=== PATIENT | male | born 1940 | race Caucasian/White ===

== ENCOUNTER 2018-10-26 11:38 | Observation (INO) | payer MEDICARE, OTHER ==
[2018-10-26] MEDS ORDERED: DIPRIVAN 200 MG/20 ML IV ONE (12:01)
[2018-10-26] MEDS ORDERED: Ketamine HCl 50 MG/ML IV ONE (12:01)
[2018-10-26 12:55] LABS: Hematocrit 38.1 % (42-50); Hemoglobin 13.6 gm/dl (12.5-18.0); Mean Cell Volume 103.3 fl (78-100); Mean Corpuscular Hgb Concent. 35.7 g/dl (32-36); Mean Platelet Volume 10.5 fl (6-9.5); Platelet Count 388 K/mm3 (150-450); Red Blood Count 3.69 M/mm3 (4.1-5.6); Red Cell Distribution Width 14.9 % (11.5-14.0); White Blood Count 4.4 K/mm3 (4.0-10.5)
[2018-10-26] MEDS ORDERED: SODIUM CHLORIDE 0.9% IV SCH (13:00)
[2018-10-26] MEDS ORDERED: [UNRECOGNIZED DRUG - OTHER] IV SCH (13:00)
[2018-10-26 13:03] LABS: Mean Corpuscular Hemoglobin 36.8 pg (26-32)
[2018-10-26 13:06] LABS: ALBUMIN 4.2 g/dL (3.5-5.0); ALKALINE PHOSPHATASE 50 U/L (38-126); AMYLASE 88 U/L (30-110); ANION GAP 13.4 MEQ/L (5-15); BLOOD UREA NITROGEN 25 mg/dL (9-20); CHLORIDE 105 mmol/L (98-107); Calcium 9.5 mg/dL (8.4-10.2); Carbon Dioxide 28 mmol/L (22-30); Creatinine 1 0.89 mg/dL (0.66-1.25); Glucose 94 mg/dL (74-106); LIPASE 107 U/L (23-300); Potassium 3.2 mmol/L (3.5-5.1); SGOT/AST 25 U/L (17-59); SGPT/ALT 22 U/L (0-50); SODIUM 143 mmol/L (137-145); Total Protein 7.2 g/dL (6.3-8.2)
[2018-10-26 13:51] LABS: Slide Review YES
[2018-10-26] MEDS: PROTONIX 40 MG IV IV SCH (14:28)
[2018-10-26] MEDS ORDERED: NORCO 5/325 MG PO PRN (14:32)
[2018-10-26] MEDS ORDERED: MEDICATION INTERVENTION MC SCH ×2 (15:15)
[2018-10-26] MEDS: NORVASC 5 MG PO SCH (15:38)
[2018-10-26] MEDS: Pepcid 20 MG PO SCH ×2 (15:38→21:24)
[2018-10-26] MEDS: ANTIVERT 25 MG PO SCH ×2 (15:38→21:25)
[2018-10-26] MEDS: DELTASONE 5 MG PO SCH (15:39)
[2018-10-26] MEDS: FOLTX (FOLBIC) PO SCH (15:40)
--- NOTE | 2018-10-26 16:24 | XRAY ---
Indication: Unexplained 35 pound weight loss 6 months. Conventional MRCP was performed. Comparison: None Gallbladder moderately distended without gallstones, wall thickening, or pericholecystic fluid. Intrahepatic and extrahepatic biliary tree normal in course and caliber. No stricture, obstruction, or filling defect. Pancreatic duct unremarkable. Bilateral renal cysts, largest left mid kidney measuring 8.5 cm. Largest right renal cyst is 3.8 cm midpole. Remaining visualized liver, pancreas, stomach, and bowel loops appear unremarkable. Impression: 1. Distended gallbladder. Remaining MRCP is negative. 2. Incidental bilateral renal cysts.
[2018-10-26] MEDS ORDERED: Golytely Solution 4000 ML PO ONE (20:00)
[2018-10-26] MEDS: Sodium Chloride 0.9% 1000 ML 1,000 ML IV SCH (21:03)
[2018-10-26] MEDS: Aricept 10 MG PO SCH (21:25)
[2018-10-26] MEDS ORDERED: FAMOTIDINE 10 MG PO SCH (22:00)
[2018-10-26] MEDS ORDERED: NON-FORMULARY ITEM (Melatonin [Melatonin] 10 MG) PO SCH (22:00)
[2018-10-26] MEDS ORDERED: NON-FORMULARY ITEM (Duloxetine Hcl [Cymbalta] 20 MG) PO SCH (22:00)
[2018-10-26] MEDS ORDERED: Protonix 40MG Tablet PO SCH (22:00)
[2018-10-26] MEDS ORDERED: Zofran 4 MG/2 ML VIAL IV PRN (23:33)
[2018-10-27] MEDS: TYLENOL 325 MG PO PRN ×2 (02:42→14:25)
[2018-10-27] MEDS: Sodium Chloride 0.9% 1000 ML 1,000 ML IV SCH ×2 (06:38→16:53)
[2018-10-27] MEDS ORDERED: CYANOCOBALAMIN PO SCH (10:00)
[2018-10-27] MEDS ORDERED: CALCIUM CARB CITRATE PO SCH (10:00)
[2018-10-27] MEDS ORDERED: FOLIC AC PO SCH (10:00)
[2018-10-27] MEDS ORDERED: [UNRECOGNIZED DRUG - OTHER] PO SCH (10:00)
[2018-10-27] MEDS ORDERED: Calcium 500MG W/Vit D Tablet PO SCH (10:00)
[2018-10-27] MEDS ORDERED: NON-FORMULARY ITEM (Amlodipine Besylate [Norvasc] 10 MG) PO SCH (10:00)
[2018-10-27] MEDS ORDERED: VIT B6 PO SCH (10:00)
[2018-10-27] MEDS ORDERED: PREDNISOLONE 5 MG PO SCH (10:00)
[2018-10-27] MEDS ORDERED: VIT D3 PO SCH (10:00)
[2018-10-27] MEDS: Pepcid 20 MG PO SCH ×2 (10:12→21:26)
[2018-10-27] MEDS: FOLTX (FOLBIC) PO SCH (10:12)
[2018-10-27] MEDS: DELTASONE 5 MG PO SCH (10:13)
[2018-10-27] MEDS: NORVASC 5 MG PO SCH (10:14)
[2018-10-27] MEDS: ANTIVERT 25 MG PO SCH ×2 (10:14→21:25)
[2018-10-27] MEDS: PROTONIX 40 MG IV IV SCH (12:25)
[2018-10-27 12:57] LABS: CA 125 30.4 U/mL (0.0-35.0)
--- NOTE | 2018-10-27 12:58 | CONS ---
CONSULT DATE: 10/26/2018 REASON FOR THE CONSULT: Abdominal pain and weight loss. HISTORY: The patient is 77 years old. He does have some dementia going. He saw Dr. Nguyen this past . He had an EGD and the EGD showed erosive esophagitis with ulcers, small hiatal hernia. He was placed on medication. A lower colonoscopic examination was discussed. His last colonoscopic examination was 1997. Somehow they decided not to do a lower colonoscopy at that time. He had about 40 pound weight loss. He had MRCP here at [facility] showing distended gallbladder but nothing else. He is alert. His dementia from my view point on just popping into the room is a little hard to access. We will leave that to medical. He shows obvious weight loss of at least 40 pounds. His abdomen is fully scaphoid. There was just a wisp of fullness in his pancreatic head on physical examination. He is nontender. He has no recent incisions. His chart is reviewed. His EGD from [facility] reviewed. His MRCP report reviewed, IMPRESSION: The patient has had a change in bowel habits, has had diarrhea and has had a 40 pound weight loss. He clearly needs a colonoscopy. He also needs a HIDA scan. I am not convinced that he has dyskinesia. I certainly am concerned that the gallbladder dilatation could be one of soft early findings of a pancreatic malignancy that is yet to be diagnosed. PLAN: We will proceed with colonoscopy and HIDA scan.
[2018-10-27 13:32] LABS: 027 TOX PROD PRESUMPTIVE NEGATIVE (NEGATIVE); TOXIGENIC C. DIFF ORG NEGATIVE (NEGATIVE)
--- NOTE | 2018-10-27 13:53 | OP ---
SURGERY DATE/TIME: 10/27/2018 1110 PREOPERATIVE DIAGNOSIS: Diarrhea, change in bowel habits, previous colon resection and no colonoscopy since 1997 and a 40 pound weight loss. POSTOPERATIVE DIAGNOSIS: Diarrhea, change in bowel habits, previous colon resection and no colonoscopy since 1997 and a 40 pound weight loss. PROCEDURE: Colonoscopy complete to cecum. SURGEON: Maximiliano Zuluaga M.D. ANESTHESIA: MAC. COMPLICATIONS: None. CONDITION: Stable. FINDING: Severe diverticulosis of sigmoid otherwise normal. Stool for Clostridium difficile, ova and parasite, stool pathogens. INDICATION: The patient presents with diarrhea, change in bowel habits, had a resection some time ago. He has not had a colonoscopy since 1997. DESCRIPTION OF PROCEDURE: He is taken to endoscopy. Left lateral decubitus position. Anal digital examination satisfactory. Prostate satisfactory. Scope advanced to the cecum. Cecum satisfactory. Base of the cecum satisfactory. Appendiceal orifice, ileocecal valve, ascending, hepatic, transverse, splenic, descending, sigmoid severe diverticulosis but no mucosal lesions. Rectum normal. Anus normal. IMPRESSION: Severe diverticulosis otherwise satisfactory. Stool was sent for Clostridium difficile, ova and parasite, stool pathogen. Additionally, the patient's x-ray jacket was reviewed with the radiologist in the radiology department. MRCP only showed a very slightly dilated gallbladder but there was no suggestion of any pancreatic mass on the MRCP. This was on review with the concern that a dilated gallbladder can be one of the earlier signs of this and the patient has lost 40 pounds but there was absolutely no radiological suggestion at this time. HIDA scan has been ordered. If the HIDA scan is severely abnormal, I would consider possibly removing the gallbladder. If the HIDA scan is 20% or greater, I do not think I would probably remove the gallbladder on this individual at this time. This was all discussed with the family. I think the patient is real close to having had a complete work up. [place] He had colonoscopy today. He had MRCP here. He had the MRCP reviewed with radiologist. He is lacking a HIDA scan. If this all returns negative then it's predominantly his dementia although treating his erosive esophagitis is certainly still in order.
[2018-10-27] MEDS ORDERED: TORAdol 30 mg Injection IV PRN (16:46)
--- NOTE | 2018-10-27 17:03 | PCM.NOTE ---
Date and Time: 10/27/181655 Subjective Assessment: doing better, colonoscopy unremarkable - Review of Systems Constitutional: No Fever, No Chills Eyes: No Symptoms Ears, Nose, & Throat: No Symptoms Respiratory: No Cough, No Short Of Breath Cardiac: No Chest Pain, No Edema, No Syncope Abdominal/Gastrointestinal: No Abdominal Pain, No Nausea, No Vomiting, No Diarrhea Genitourinary Symptoms: No Dysuria Musculoskeletal: No Back Pain, No Neck Pain Skin: No Rash Neurological: No Dizziness, No Focal Weakness, No Sensory Changes Psychological: No Symptoms Endocrine: No Symptoms Hematologic/Lymphatic: No Symptoms Immunological/Allergic: No Symptoms Objective Exam General Appearance: no apparent distress, alert Neurologic Exam: alert, oriented x 3, cooperative, normal mood/affect, nml cerebellar function, sensation nml, No motor deficits Skin Exam: normal color, warm, dry Eye Exam: PERRL, EOMI, eyes nml inspection Ears, Nose, Throat Exam: normal ENT inspection, pharynx normal, moist mucous membranes Neck Exam: normal inspection, non-tender, supple, full range of motion Respiratory Exam: normal breath sounds, lungs clear, No respiratory distress Cardiovascular Exam: regular rate/rhythm, normal heart sounds Gastrointestinal/Abdomen Exam: soft, No tenderness, No mass Extremity Exam: normal inspection, normal range of motion Back Exam: normal inspection, normal range of motion, No CVA tenderness, No vertebral tenderness Male Genitalia Exam: deferred Rectal Exam: deferred OBJECTIVE DATA Vital Signs: Vital Signs - 24 hr Temp Pulse Resp BP Pulse Ox 10/27/18 15:30 98.5 F 82 20 110/57 94 L 10/27/18 14:30 98.6 F 88 20 114/60 97 10/27/18 13:30 98.3 F 81 20 124/63 98 10/27/18 13:00 98.2 F 82 18 125/68 97 10/27/18 12:30 97.4 F 82 20 132/74 97 10/27/18 12:15 99.5 F 75 18 129/74 98 10/27/18 11:58 98.2 F 75 16 125/71 96 10/27/18 07:23 98.5 F 76 18 110/59 96 10/27/18 07:11 98.5 F 76 18 110/59 96 10/27/18 04:00 98.4 F 74 18 113/59 93 L 10/27/18 00:00 98.0 F 65 17 124/66 95 10/26/18 20:00 98.5 F 94 H 18 124/63 94 L Pain Assessment - Last Documented Pain Intensity 0 Pain Scale Used 0-10 Pain Scale Intake and Output: Intake & Output 10/25/18 10/26/18 10/27/18 10/28/18 11:59 11:59 11:59 11:59 Intake Total 5292 960 Output Total 300 Balance 5292 660 Weight 50.2 kg Lab Results: Lab Results-Last 24 Hours 10/26/18 10/27/18 Range/Units 12:50 11:27 CA 19-9 Antigen Pending CA 125 Antigen 30.4 (0.0-35.0) U/mL Stl C. diff Tox B Gene NEGATIVE (NEGATIVE) C.difficile 027-NAP1-B1 PRESUMPTIVE NEGATIVE (NEGATIVE) Radiology Exams: Radiology Procedures Category Date Time Status HIDA-GALL BLADDER [NUCMED] Routine Exams 10/28/18 08:00 Ordered MRI ABD W/O CONTRAST [MRI] Routine Exams 10/26/18 13:00 Completed Assessment/Plan (1) HTN (hypertension) Current Visit: Yes Status: Acute Qualifiers: Hypertension type: essential hypertension Qualified Code(s): I10 - Essential (primary) hypertension Code(s): I10 - ESSENTIAL (PRIMARY) HYPERTENSION (2) Esophagitis Current Visit: Yes Status: Acute Code(s): K20.9 - ESOPHAGITIS, UNSPECIFIED (3) Gastric ulcer Current Visit: Yes Status: Acute Qualifiers: Gastric ulcer chronicity: acute Gastric ulcer complication status: without hemorrhage or perforation Qualified Code(s): K25.3 - Acute gastric ulcer without hemorrhage or perforation Code(s): K25.9 - GASTRIC ULCER, UNSP ACUTE OR CHRONIC, W/O HEMOR OR PERF (4) Chronic pain Current Visit: Yes Status: Chronic Qualifiers: Chronic pain type: chronic pain syndrome Qualified Code(s): G89.4 - Chronic pain syndrome Code(s): G89.29 - OTHER CHRONIC PAIN
[2018-10-27] MEDS: Aricept 10 MG PO SCH (21:27)
[2018-10-28] MEDS: Sodium Chloride 0.9% 1000 ML 1,000 ML IV SCH (02:11)
[2018-10-28] MEDS ORDERED: METHOTREXATE SODIUM 15 MG PO SCH (10:00)
[2018-10-28 11:33] VITALS: BP 128/72; PULSE 85; O2SAT 96
[2018-10-28 12:17] LABS: Source: Feces
--- NOTE | 2018-10-28 13:08 | PCM.DS ---
Discharge Summary Date of Admission: 10/26/18 12:00 Admitting Physician: KIRSTIE MONTIEL Consults: Consults on Case 10/26/18 18:37 Consult Surgery ROUTINE Primary Care Provider: KIRSTIE MONTIEL Allergies Allergies No Known Drug Allergies Allergy (Unverified 10/26/18 12:22) Hospital Summary - Hospital Course Hospital Course: Chief Complaint Diagnosis Abnormal wt loss, Dehydration,Duodenal ulcer Allergies Allergy/AdvReac Type Severity Reaction Status Date / Time No Known Drug Allergies Allergy Unverified 10/26/18 12:22 Vital Signs (Last 24 hours) Temp Pulse Resp BP Pulse Ox 10/28/18 11:31 99.4 F 85 18 128/72 96 10/28/18 06:57 99 F 77 17 118/58 93 L 10/28/18 04:00 98.4 F 76 18 117/55 97 10/27/18 23:00 97.6 F 75 16 117/55 97 10/27/18 19:00 98.6 F 90 16 120/62 96 10/27/18 15:30 98.5 F 82 20 110/57 94 L 10/27/18 14:30 98.6 F 88 20 114/60 97 10/27/18 13:30 98.3 F 81 20 124/63 98 Home Medications Medication Instructions Recorded Confirmed Last Taken Type Amlodipine Besylate [Norvasc] 10 mg PO DAILY 10/26/18 10/26/18 10/25/18 History Calcium Carb, Citrate/Vit D3 1 each PO DAILY 10/26/18 10/26/18 10/25/18 History [Calcium + D3 ER Tablet] Cyanocobalamin/Folic AC/Vit B6 [B 1 each PO DAILY 10/26/18 10/26/18 10/25/18 History Complex-Folic Acid Tablet] Denosumab 60 mg [Prolia 60 mg 60 mg SQ UD 10/26/18 10/26/18 09/07/18 History Injection] Donepezil HCl 10 mg PO HS 10/26/18 10/26/18 10/25/18 History Duloxetine HCl [Cymbalta] 20 mg PO BID 10/26/18 10/26/18 10/25/18 History Famotidine 10 mg PO BID 10/26/18 10/26/18 10/25/18 History Hydrocodone/Acetaminophen [Lorcet 2 each PO Q4HPRN PRN 10/26/18 10/26/18 History 5-325 mg Tablet] Meclizine HCl 50 mg PO BID 10/26/18 10/26/18 10/25/18 History Melatonin 10 mg PO HS 10/26/18 10/26/18 10/25/18 History Methotrexate Sodium [Trexall] 15 mg PO UD 10/26/18 10/26/18 10/16/18 History PANTOPRAZOLE 40 mg Tablet 40 mg PO HS 10/26/18 10/26/18 10/25/18 History [Protonix 40MG Tablet] Prednisolone [Millipred] 5 mg PO DAILY 10/26/18 10/26/18 10/25/18 History Current Medications Generic Name Dose Route Start Last Admin Trade Name Freq PRN Reason Stop Dose Admin Acetaminophen 650 mg 10/27/18 02:40 10/27/18 14:25 Tylenol 325 Mg PO 11/26/18 02:39 650 mg Q4H PRN PRN Administration PAIN AND/OR FEVER Hydrocodone Bitart/Acetaminophen 2 tab 10/26/18 14:32 10/26/18 21:25 Agency 5/325 Mg PO 10/31/18 14:31 1 tab Q4HPRN PRN Administration pain Amlodipine Besylate 10 mg 10/26/18 15:00 10/27/18 10:14 Norvasc 5 Mg PO 11/25/18 14:59 10 mg DAILY POPPY Administration Calcium Carbonate 1 tab 10/27/18 10:00 10/27/18 10:12 Calcium 500mg W/Vit D Tablet PO 11/26/18 09:59 1 tab DAILY POPPY Administration Donepezil HCl 10 mg 10/26/18 22:00 10/27/18 21:27 Aricept 10 Mg PO 11/25/18 21:59 10 mg HS POPPY Administration Famotidine 10 mg 10/26/18 15:00 10/27/18 21:26 Pepcid 20 Mg PO 11/25/18 14:59 10 mg BID POPPY Administration Folic Acid 1 tab 10/26/18 15:00 10/27/18 10:12 Foltx (Folbic) PO 11/25/18 14:59 1 tab DAILY POPPY Administration Sodium Chloride 1,000 mls @ 100 mls/hr 10/26/18 18:45 10/28/18 02:11 Sodium Chloride 0.9% 1000 Ml IV 11/25/18 18:44 100 mls/hr .Q10H POPPY Administration Ketorolac Tromethamine 30 mg 10/27/18 16:46 10/27/18 17:05 Toradol 30 Mg Injection IV 11/01/18 16:45 30 mg Q6H PRN PRN Administration PAIN Meclizine HCl 50 mg 10/26/18 14:45 10/27/18 21:25 Antivert 25 Mg PO 11/25/18 14:44 50 mg BID POPPY Administration Methotrexate 15 mg 10/30/18 10:00 Trexall 2.5 Mg PO 11/29/18 09:59 Q7D POPPY Miscellaneous Information 0 each 10/26/18 15:15 Medication Intervention 11/25/18 15:14 .RN TO CHECK WITH PT POPPY Miscellaneous Information 0 each 10/26/18 15:15 10/27/18 21:25 Medication Intervention 11/25/18 15:14 10 each .RN TO CHECK WITH PT POPPY Administration Non-Formulary Medication 60 mg 03/10/19 14:45 Denosumab 60 Mg SQ 04/09/19 14:44 UD POPPY Ondansetron HCl 4 mg 10/26/18 23:33 10/26/18 23:39 Zofran 4 Mg/2 Ml Vial IV 11/25/18 23:32 4 mg Q4H PRN PRN Administration NAUSEA/VOMITING Pantoprazole Sodium 40 mg 10/26/18 13:00 10/27/18 12:25 Protonix 40 Mg Iv IV 11/25/18 12:59 40 mg Q24H POPPY Administration Prednisone 5 mg 10/26/18 15:00 10/27/18 10:13 Deltasone 5 Mg PO 11/25/18 14:59 5 mg DAILY POPPY Administration Discontinued Medications Generic Name Dose Route Start Last Admin Trade Name Freq PRN Reason Stop Dose Admin Cyanocobalamin 1,000 mcg/ 1,001 mls @ 150 mls/hr 10/26/18 13:00 04/24/19 14: 23 Sodium Chloride IV 10/26/18 19:40 150 mcg/hr .Q6H41M POPPY 150.15 mls/hr Administration Ketamine HCl 25 mg 10/26/18 12:01 Ketamine Hcl 50 Mg/Ml IV 10/26/18 12:02 .STK-MED ONE Pantoprazole Sodium 40 mg 10/26/18 22:00 Protonix 40mg Tablet PO 11/25/18 21:59 HS POPPY Polyethylene Glycol/Electrolytes 2,000 ml 10/26/18 20:00 10/26/18 19:46 Golytely Solution 4000 Ml PO 10/26/18 20:01 2,000 ml NOW ONE Administration Propofol 200 mg 10/26/18 12:01 Diprivan 200 Mg/20 Ml IV 10/26/18 12:02 .STK-MED ONE Intake & Output (Last 24 hours) 10/26/18 10/27/18 10/28/18 10/29/18 11:59 11:59 11:59 11:59 Intake Total 5292 2230 Output Total 300 Balance 5292 1930 Weight 50.2 kg Microbiology Results (Last 24 hours) 10/27/18 11:27 Stool Stool Culture - Pending Laboratory Results (Last 24 hours) 10/27/18 11:27 Stl C. diff Tox B Gene NEGATIVE C.difficile 027-NAP1-B1 PRESUMPTIVE NEGATIVE Orders (Last 24 hours) Category Date Time Status HIDA-GALL BLADDER [NUCMED] Routine Exams 10/28/18 08:00 Ordered Denosumab 60 mg Med 03/10/19 14:45 Active 60 mg SQ UD KETOROLAC trometh 30 mg Inj [TORAdol 30 mg Injection Med 10/27/18 16:46 Active ] 30 mg IV Q6H PRN PRN Methotrexate Sodium 2.5 mg [Trexall 2.5 mg] Med 10/30/18 10:00 Active 15 mg PO Q7D Patient Care Notes (Last 24 hours) 10/28/18 10:34 Nursing Note by Mila Amezcua holding morning medications until after HIDA scan Initialized on 10/28/18 10:34 - END OF NOTE - Vitals & Intake/Output Vital Signs: Vital Signs Temperature 99.4 F 04/26/19 11:31 Pulse Rate 85 10/28/18 11:31 Respiratory Rate 18 10/28/18 11:31 Blood Pressure 128/72 10/28/18 11:31 O2 Sat by Pulse Oximetry 96 10/28/18 11:31 Intake & Output: Intake & Output 10/26/18 10/27/18 10/28/18 10/29/18 11:59 11:59 11:59 11:59 Intake Total 5292 2230 Output Total 300 Balance 5292 1930 Weight 50.2 kg - Lab Result Diagrams: 10/26/18 12:50 10/26/18 12:50 Lab Results-Last 24 Hrs: Lab Results-Last 24 Hours 10/27/18 Range/Units 11:27 Stl C. diff Tox B Gene NEGATIVE (NEGATIVE) C.difficile 027-NAP1-B1 PRESUMPTIVE NEGATIVE (NEGATIVE) - Radiology Exams Ordered Rad Exams-Entire Visit: Radiology Procedures Category Date Time Status HIDA-GALL BLADDER [NUCMED] Routine Exams 10/28/18 08:00 Ordered MRI ABD W/O CONTRAST [MRI] Routine Exams 10/26/18 13:00 Completed Discharge Exam General Appearance: no apparent distress, alert Neurologic Exam: alert, oriented x 3, cooperative, normal mood/affect, nml cerebellar function, sensation nml, No motor deficits Skin Exam: normal color, warm, dry Eye Exam: PERRL, EOMI, eyes nml inspection Ears, Nose, Throat Exam: normal ENT inspection, pharynx normal, moist mucous membranes Neck Exam: normal inspection, non-tender, supple, full range of motion Respiratory Exam: normal breath sounds, lungs clear, No respiratory distress Cardiovascular Exam: regular rate/rhythm, normal heart sounds Gastrointestinal/Abdomen Exam: soft, No tenderness, No mass Extremity Exam: normal inspection, normal range of motion Back Exam: normal inspection, normal range of motion, No CVA tenderness, No vertebral tenderness Male Genitalia Exam: deferred Rectal Exam: deferred Final Diagnosis/Problem List - Final Discharge Diagnosis/Problem (1) Gastric ulcer Current Visit: Yes Status: Acute Assessment & Plan: improving Code(s): K25.9 - GASTRIC ULCER, UNSP ACUTE OR CHRONIC, W/O HEMOR OR PERF (2) HTN (hypertension) Current Visit: Yes Status: Acute Code(s): I10 - ESSENTIAL (PRIMARY) HYPERTENSION (3) Esophagitis Current Visit: Yes Status: Acute Code(s): K20.9 - ESOPHAGITIS, UNSPECIFIED (4) Chronic pain Current Visit: Yes Status: Chronic Code(s): G89.29 - OTHER CHRONIC PAIN - Discharge Discharge Date: 10/28/18 Disposition: Home, Self-Care Condition: Stable Prescriptions: New Sucralfate 1 gm [Carafate 1 GM] 1 g PO ACHS #120 tablet Continue Prednisolone [Millipred] 5 mg PO DAILY PANTOPRAZOLE 40 mg Tablet [Protonix 40MG Tablet] 40 mg PO HS Methotrexate Sodium [Trexall] 15 mg PO UD Melatonin 10 mg PO HS Amlodipine Besylate [Norvasc] 10 mg PO DAILY Donepezil HCl 10 mg PO HS Cyanocobalamin/Folic AC/Vit B6 [B Complex-Folic Acid Tablet] 1 each PO DAILY Famotidine 10 mg PO BID Duloxetine HCl [Cymbalta] 20 mg PO BID Hydrocodone/Acetaminophen [Lorcet 5-325 mg Tablet] 2 each PO Q4HPRN PRN PRN Reason: pain Meclizine HCl 50 mg PO BID Denosumab 60 mg [Prolia 60 mg Injection] 60 mg SQ UD Calcium Carb, Citrate/Vit D3 [Calcium + D3 ER Tablet] 1 each PO DAILY Follow up with: ARMANI VIRK [ACTIVE STAFF] - 1 Week KIRSTIE MONTIEL MD [Primary Care Provider] - 1 Week
[2018-10-28 14:15] LABS: Giardia Antigen EIA Negative (Negative)
[2018-10-28 14:15] LABS: CA 19-9 39.2 IU/mL (0.0-34.9)
--- NOTE | 2018-10-28 14:57 | XRAY ---
Indication: Right upper quadrant abdomen pain. Comparison: None Patient received 4.9 mCi of Tc 99 Choletec. Immediate anterior planar imaging was performed for 60 minutes. Normal hepatic activity on the first image. Normal liver and gallbladder activity within 10 minutes. Normal biliary to bowel activity within 40 minutes. Patient then received 1.0 g of IV CCK slowly. Ejection fraction calculated 89%, normal. Impression: Normal HIDA scan. Normal ejection fraction 89%.
[2018-10-30] MEDS ORDERED: TREXALL 2.5 MG PO SCH (10:00)
[2019-03-10] MEDS ORDERED: DENOSUMAB 60 MG SQ SCH (14:45)
== END 2018-10-28 15:45 | disposition home or self-care (01) ==
LOC: MED SURG 12:00
PROVIDERS: ADMIT General Practice; ATTEND General Practice
DX: K25.9 Gastric ulcer, unspecified as acute or chronic, without hemorrhage or perforation (principal); K20.9 Esophagitis, unspecified; I10 Essential (primary) hypertension; R63.4 Abnormal weight loss; E86.0 Dehydration; R19.4 Change in bowel habit; K44.9 Diaphragmatic hernia without obstruction or gangrene; R19.7 Diarrhea, unspecified; G89.29 Other chronic pain; Z79.899 Other long term (current) drug therapy
CPT/HCPCS: 36415; 45378; 74181; 78226; 80053; 82150; 83690; 85027; 86301; 86304; 87045; 87046; 87177; 87209; 87335; 87493; A9537; G0378; 99100; J1885; J2405; J2704; J2805; J3420; A9270-GY

== ENCOUNTER 2019-02-01 12:50 | Day surgery (SDC) | payer MEDICARE, OTHER ==
[2019-02-01] MEDS ORDERED: Depo-Medrol 40 MG/ML IM ONE (12:51)
[2019-02-01] MEDS ORDERED: Xylocaine-Mpf 2% 5 Ml Vial IJ ONE (12:51)
[2019-02-01] MEDS ORDERED: DIPRIVAN 200 MG/20 ML IV ONE (14:35)
--- NOTE | 2019-02-01 15:04 | XRAY ---
Indication: Bilateral L4-S1 MBB. Intraoperative fluoroscopy was provided for 18 seconds. Single digital spot image submitted for interpretation demonstrates posterior needle tips projecting over the expected course of the left and right L4-S1 nerve roots. Correlate with intraoperative findings/report.
[2019-02-01] MEDS ORDERED: Lactated Ringers 1,000 ML IV ONE (16:47)
--- NOTE | 2019-02-03 11:46 | XRAY ---
18 seconds of fluoroscopy was used in surgery for a bilateral L4-S1 MBB.
== END 2019-02-01 15:08 | disposition home or self-care (01) ==
LOC: SDC-PAIN 12:50
PROVIDERS: ATTEND Psychiatry & Neurology Pain Medicine
DX: M47.816 Spondylosis without myelopathy or radiculopathy, lumbar region (principal); I10 Essential (primary) hypertension; K21.9 Gastro-esophageal reflux disease without esophagitis; G47.30 Sleep apnea, unspecified; Z79.899 Other long term (current) drug therapy
CPT/HCPCS: 64493; 64494; 72020; 77002; J1030; J2704

== ENCOUNTER 2019-03-17 13:30 | Emergency (ER) | payer MEDICARE, OTHER ==
--- NOTE | 2019-03-17 13:56 | ERPHSYRPT ---
- History of Present Illness Time Seen by Provider: 03/17/19 13:40 Source: patient, family Exam Limitations: no limitations Patient Subjective Stated Complaint: Pt states "I have a bad back and since yesterday I have had this constant pain on my lower left back into my buttock." Triage Nursing Assessment: Pt presented alert and oriented X 3, skin pwd PT ambulates with a hunched over gait, able to speak in clear full sentences. Pt in no apparent respiratory distress. Physician History: 78 y/o white male with h/o chronic low back pain, presents with left lower back pain that is like a knife stabbing him and shoots into left buttock. pt is on perocet and took a pill at 0900. however, pts pain is now chronic. pt denies acute injury. Method of Injury: unknown Quality: radiating (to left buttock), sharp Back Pain Location: lumbar spine Back Pain Radiation: buttocks Severity of Pain-Max: moderate Severity of Pain-Current: moderate Associated Symptoms: muscle spasms Previous symptoms: same symptoms as today Allergies/Adverse Reactions: No Known Drug Allergies Allergy (Verified 03/17/19 13:45) Home Medications: Amlodipine Besylate [Norvasc] 10 mg PO DAILY 10/26/18 [History] Calcium Carb, Citrate/Vit D3 [Calcium + D3 ER Tablet] 1 each PO DAILY 10/26/18 [ History] Cyanocobalamin/Folic AC/Vit B6 [B Complex-Folic Acid Tablet] 1 each PO DAILY [History] Denosumab 60 mg [Prolia 60 mg Injection] 60 mg SQ UD 10/26/18 [History] Donepezil HCl 10 mg PO HS 10/26/18 [History] Duloxetine HCl [Cymbalta] 20 mg PO BID 10/26/18 [History] Famotidine 10 mg PO BID 10/26/18 [History] Hydrocodone/Acetaminophen [Lorcet 5-325 mg Tablet] 2 each PO Q4HPRN PRN [History] Meclizine HCl 50 mg PO BID 10/26/18 [History] Melatonin 10 mg PO HS 10/26/18 [History] Methotrexate Sodium [Trexall] 15 mg PO UD 10/26/18 [History] PANTOPRAZOLE 40 mg Tablet [Protonix 40MG Tablet] 40 mg PO HS 10/26/18 [ History] Prednisolone [Millipred] 5 mg PO DAILY 10/26/18 [History] Memantine HCl [Memantine HCl ER] 28 mg PO DAILY 03/17/19 [History] Tamsulosin HCl 0.4 mg PO DAILY 03/17/19 [History] Hx Tetanus, Diphtheria Vaccination/Date Given: No Hx Influenza Vaccination/Date Given: Yes Hx Pneumococcal Vaccination/Date Given: No Immunizations Up to Date: Yes - Review of Systems Constitutional: No Symptoms Eyes: No Symptoms Ears, Nose, & Throat: No Symptoms Respiratory: No Symptoms Cardiac: No Symptoms Abdominal/Gastrointestinal: No Symptoms Genitourinary Symptoms: No Symptoms Musculoskeletal: Back Pain (left lower) Skin: No Symptoms Neurological: No Symptoms Psychological: No Symptoms Endocrine: No Symptoms Hematologic/Lymphatic: No Symptoms Immunological/Allergic: No Symptoms - Past Medical History Pertinent Past Medical History: Yes Neurological History: Migraines ENT History: Cataracts, Other Cardiac History: High Cholesterol, Hypertension Respiratory History: No Pertinent History Endocrine Medical History: No Pertinent History Musculoskeletal History: Arthritis GI Medical History: GERD, Ulcer History: No Pertinent History Psycho-Social History: No Pertinent History Male Reproductive Disorders: No Pertinent History Other Medical History: dementia - Past Surgical History Past Surgical History: Yes Neuro Surgical History: No Pertinent History Cardiac: No Pertinent History Respiratory: No Pertinent History Gastrointestinal: Appendectomy, Colon Resection Genitourinary: No Pertinent History Musculoskeletal: Joint Replacement, Orthopedic Surgery Male Surgical History: Vasectomy Other Surgical History: left knee replacement, colon and bladder were growing together hiatal henia repain, neck surgery with screws and plate (metal) - Social History Smoking Status: Former smoker Exposure to second hand smoke: No Drug Use: none Patient Lives Alone: No - Nursing Vital Signs Nursing Vital Signs: Initial Vital Signs Temperature 98.5 F 03/17/19 13:36 Pulse Rate 94 H 03/17/19 13:36 Respiratory Rate 20 03/17/19 13:36 Blood Pressure 117/70 03/17/19 13:36 O2 Sat by Pulse Oximetry 96 03/17/19 13:36 Pain Scale Pain Intensity [Left Back] 7 Pain Intensity 7 - Physical Exam General Appearance: mild distress, alert, anxiety Eye Exam: PERRL/EOMI, eyes nml inspection Ears, Nose, Throat Exam: normal ENT inspection, moist mucous membranes Neck Exam: normal inspection, non-tender, supple, full range of motion Respiratory Exam: airway intact, No chest tenderness, No respiratory distress Gastrointestinal Exam: No tenderness Rectal Exam: not done Back Exam: normal inspection, decreased range of motion, muscle spasm (left lower lumbar region), No CVA tenderness, No vertebral tenderness Extremity Exam: normal inspection, normal range of motion, pelvis stable Neurologic Exam: alert, oriented x 3, cooperative, 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, normal mood/affect Skin Exam: normal color, warm, dry Lymphatic Exam: No adenopathy SpO2 Interpretation: normal SpO2: 96 O2 Delivery: Room Air Ordered Tests: Medication Summary Discontinued Medications Generic Name Dose Route Start Last Admin Trade Name Freq PRN Reason Stop Dose Admin Hydromorphone HCl 0.5 mg 03/17/19 13:57 03/17/19 14:12 Hydromorphone 1 Mg/Ml Ampule IM 03/17/19 13:58 0.5 mg STAT ONE Administration Hydromorphone HCl Confirm 03/17/19 14:04 Hydromorphone 1 Mg/Ml Ampule Administered 03/17/19 14:05 Dose 1 mg .ROUTE .STK-MED ONE Lorazepam 0.5 mg 03/17/19 14:00 03/17/19 14:13 Ativan 2 Mg/1 Ml Vial IM 03/17/19 14:01 0.5 mg STAT ONE Administration Lorazepam Confirm 03/17/19 14:03 Ativan 2 Mg/1 Ml Vial Administered 03/17/19 14:04 Dose 2 mg .ROUTE .STK-MED ONE Methylprednisolone Sodium Succinate 125 mg 03/17/19 13:58 03/17/19 14:13 Solu-Medrol 125 Mg IM 03/17/19 13:59 125 mg STAT ONE Administration Methylprednisolone Sodium Succinate Confirm 03/17/19 14:04 Solu-Medrol 125 Mg Administered 03/17/19 14:05 Dose 125 mg .ROUTE .STK-MED ONE Ondansetron HCl 4 mg 03/17/19 13:58 03/17/19 14:10 Zofran Odt 4 Mg PO 03/17/19 13:59 4 mg STAT ONE Administration Ondansetron HCl Confirm 03/17/19 14:04 Zofran Odt 4 Mg Administered 03/17/19 14:05 Dose 4 mg .ROUTE .STK-MED ONE - Progress Progress: improved, pain not gone completely Counseled pt/family regarding: diagnosis, need for follow-up - Departure Departure Disposition: Home Clinical Impression: Low back pain, Sciatica Condition: Stable Critical Care Time: No Referrals: KIRSTIE OMNTIEL MD [Primary Care Provider] - Additional Instructions: continue your percocet as prescribed. follow up with your primary doctor for further management Prescriptions: Carisoprodol 350 mg [Soma 350 mg] 350 mg PO Q12H PRN PRN #5 tablet PRN Reason: Muscle Spasms Prednisone 10 mg [Deltasone 10 mg] 10 mg PO TID #12 tablet
[2019-03-17] MEDS ORDERED: Hydromorphone 1 mg/ml Ampule IM ONE (13:57)
[2019-03-17] MEDS ORDERED: ZOFRAN ODT 4 MG PO ONE (13:58)
[2019-03-17] MEDS ORDERED: solu-MEDROL 125 MG IM ONE (13:58)
[2019-03-17] MEDS ORDERED: Ativan 2 MG/1 ML VIAL IM ONE (14:00)
[2019-03-17] MEDS ORDERED: Ativan 2 MG/1 ML VIAL ONE (14:03)
[2019-03-17] MEDS ORDERED: ZOFRAN ODT 4 MG ONE (14:04)
[2019-03-17] MEDS ORDERED: Hydromorphone 1 mg/ml Ampule ONE (14:04)
[2019-03-17] MEDS ORDERED: solu-MEDROL 125 MG ONE (14:04)
[2019-03-17 14:24] VITALS: BP 108/68
[2019-03-17 14:29] VITALS: PULSE 79; O2SAT 93
== END 2019-03-17 14:42 | disposition home or self-care (01) ==
LOC: ED 13:30
DX: M54.42 Lumbago with sciatica, left side (principal)
CPT/HCPCS: 96372; 99284; J1170; J2060; J2930; Q0162

== ENCOUNTER 2019-03-22 10:05 | Day surgery (SDC) | payer MEDICARE, OTHER ==
[2019-03-22] MEDS ORDERED: Marcaine 0.5% SDV 10 ML IJ ONE (10:06)
[2019-03-22] MEDS ORDERED: Depo-Medrol 40 MG/ML IM ONE (10:06)
[2019-03-22] MEDS ORDERED: Ketamine HCl 50 MG/ML ONE (11:06)
[2019-03-22] MEDS ORDERED: DIPRIVAN 200 MG/20 ML IV ONE (11:06)
--- NOTE | 2019-03-22 12:11 | XRAY ---
Indication: Bilateral L4-S1 MBB. Intraoperative fluoroscopy was provided for 12 seconds. Single digital spot image submitted for interpretation demonstrates posterior needle tips projecting over the expected course of the left and right L4-S1 nerve roots. Correlate with intraoperative findings/report.
--- NOTE | 2019-03-22 12:34 | XRAY ---
12 seconds fluoroscopy time in surgery for bilateral L4-S1 MBB.
[2019-03-22] MEDS ORDERED: Lactated Ringers 1,000 ML IV ONE (13:59)
== END 2019-03-22 11:25 | disposition home or self-care (01) ==
LOC: SDC-PAIN 10:05
PROVIDERS: ATTEND Psychiatry & Neurology Pain Medicine
DX: M47.816 Spondylosis without myelopathy or radiculopathy, lumbar region (principal); I10 Essential (primary) hypertension; G47.30 Sleep apnea, unspecified; K21.9 Gastro-esophageal reflux disease without esophagitis; Z79.899 Other long term (current) drug therapy; F03.90 Unspecified dementia, unspecified severity, without behavioral disturbance, psychotic disturbance, mood disturbance, and anxiety
CPT/HCPCS: 64493; 64494; 72020; 77002; J1030; J2704

== ENCOUNTER 2020-01-31 12:57 | Day surgery (SDC) | payer MEDICARE, OTHER ==
[2020-01-31] MEDS ORDERED: BUPIVACAINE 0.5% VIAL IJ ONE (12:58)
[2020-01-31] MEDS ORDERED: Xylocaine 1% Vial 30 ML PF IJ ONE (12:58)
[2020-01-31] MEDS ORDERED: Depo-Medrol 40 MG/ML IM ONE (12:58)
--- NOTE | 2020-01-31 15:03 | XRAY ---
Indication: Right knee intra-articular injection. Intraoperative fluoroscopy was provided for 14 seconds. Single digital spot image submitted for interpretation demonstrates needle tip projecting over the right femur intercondylar notch. Small amount of contrast injected for needle tip placement. Correlate with intraoperative findings/report.
--- NOTE | 2020-01-31 15:07 | XRAY ---
14 seconds fluoroscopy time in surgery for right knee intra-articular injection.
== END 2020-01-31 13:46 | disposition home or self-care (01) ==
LOC: SDC-PAIN 12:57
PROVIDERS: ATTEND Psychiatry & Neurology Pain Medicine
DX: M17.11 Unilateral primary osteoarthritis, right knee (principal); I10 Essential (primary) hypertension; K21.9 Gastro-esophageal reflux disease without esophagitis; G47.30 Sleep apnea, unspecified; Z79.899 Other long term (current) drug therapy
CPT/HCPCS: 20610; 73560; 77002; J1030; J2001; Q9966

== ENCOUNTER 2020-07-07 06:35 | Inpatient (IN) | payer MEDICARE, OTHER ==
[2020-07-07] MEDS ORDERED: FEVERALL 650 MG PR ONE (06:52)
[2020-07-07] MEDS ORDERED: FEVERALL 325 MG ONE (06:53)
[2020-07-07] MEDS ORDERED: Lactated Ringers 1,000 ML IV SCH (07:00)
[2020-07-07 07:18] LABS: INR 1.25 (0.8-3.0); Mean Cell Volume 95.6 fl (78-100); Mean Corpuscular Hemoglobin 31.9 pg (26-32); Mean Corpuscular Hgb Concent. 33.3 g/dl (32-36); Mean Platelet Volume 11.8 fl (7.5-11.0); PROTIME 14.2 SECONDS (8.83-12.87); Platelet Count 204 K/mm3 (150-450); Red Blood Count 4.08 M/mm3 (4.1-5.6); Red Cell Distribution Width 16.9 % (11.5-14.0); White Blood Count 9.7 K/mm3 (4.0-10.5)
[2020-07-07 07:20] LABS: A-aADO2 100; ABG HEMOGLOBIN 12.8; ARTERIAL BLD GAS O2 SATURATION 98.2 % (95-100); ARTERIAL BLOOD GAS BASE EXCESS 3.9 (-2.0-2.0); ARTERIAL BLOOD GAS FIO2 32 %; ARTERIAL BLOOD GAS PCO2 38 mmHg (35-45); ARTERIAL BLOOD GAS PO2 81 mmHg (75-100); ARTERIAL BLOOD GAS pH 7.47 (7.35-7.45); CARBOXYHEMOGLOBIN 1.4 % THgb (0.0-6.9); HCO3- 27.7 (22-28); HGB O2 SAT 95.8 g/dF (94-100); Methhemoglobin 0.9 % (1.4-1.5); paO2 pAO1 0.45
[2020-07-07 07:21] LABS: ABG SITE LEFT RADIAL; ALLEN TEST OK? YES
[2020-07-07 07:26] LABS: Appearance CLEAR (CLEAR); Bacteria RARE /HPF (NEGATIVE); Bilirubin NEGATIVE (NEGATIVE); Blood SMALL Ery/ul (0-5); Glucose NEGATIVE (NEGATIVE); Ketones SMALL (NEGATIVE); Leukocyte Esterase TRACE (NEGATIVE); Mucus SLIGHT /HPF (NEGATIVE); Nitrite NEGATIVE (NEGATIVE); Protein,Urine Dip 30 (Negative); RBC 0-2 /HPF (0-2); Specific Gravity 1.015 (1.005-1.025); Urobilinogen NEGATIVE mg/dL (0-1)
[2020-07-07] MEDS ORDERED: Zithromax 500 MG/ 250 ML NaCl Premix 500 MG/250 ML IVPB IV STA (07:26)
[2020-07-07 07:29] LABS: Budding Yeast Occasional /HPF (NEGATIVE); Epithelial Cells RARE /HPF (FEW)
[2020-07-07] MEDS ORDERED: Zithromax 500 MG/ 250 ML NaCl Premix 500 MG/250 ML IVPB IV ONE (07:29)
[2020-07-07 07:34] LABS: ALBUMIN 4.1 g/dL (3.5-5.0); ALKALINE PHOSPHATASE 58 U/L (38-126); ANION GAP 11.4 MEQ/L (5-15); BLOOD UREA NITROGEN 9 mg/dL (9-20); CHLORIDE 100 mmol/L (98-107); Calcium 8.8 mg/dL (8.4-10.2); Carbon Dioxide 30 mmol/L (22-30); Creatinine 1 0.78 mg/dL (0.66-1.25); EST GLOMERULAR FILTRATION RATE > 60.0 ML/MIN; Glucose 114 mg/dL (74-106); LDH-LACTATE DEHYDROGENASE 196 U/L (120-246); Potassium 3.2 mmol/L (3.5-5.1); SGOT/AST 35 U/L (17-59); SGPT/ALT 14 U/L (0-50); SODIUM 138 mmol/L (137-145); TROPONIN < 0.012 ng/mL (0.000-0.034); Total Protein 7.2 g/dL (6.3-8.2)
[2020-07-07 07:47] LABS: MAGNESIUM 1.4 mg/dL (1.6-2.3)
--- NOTE | 2020-07-07 07:57 | ERPHSYRPT ---
- History of Present Illness Time Seen by Provider: 07/07/20 07:02 Source: patient, family Exam Limitations: clinical condition Patient Subjective Stated Complaint: Pt states "On wednesday when I went to get him up out of bed. Last night he was sitting in his chair and he vomited everywhere. This morning around 2 am he started to thrash around and become more weak." Triage Nursing Assessment: Pt presented alert to self, extremely lethargic. Pt tachypneic, hot to touch. pt moves all extremeties, weak. Pt allowed to come back due to pt mental status and pt fall risk. Physician History: 79 years old male with history of hypertension, hyperlipidemia, arthritis, dementia is brought in the ER with chief complaint of generalized weakness fatigue for 2 days and now associated cough and shortness of breath since last night. reports patient was having difficulty ambulation to begin with 2 days ago because of generalized weakness and yesterday was weak enough to get out of bed and had incontinence of urine. thought he has UTI as he has similar symptoms in the past with it. Last night he started to have cough and vomited once. He also started to spike fever and was 103 on arrival in the ER. Patient is having difficulty breathing with loud wheezing and crackling. His confusion is progressively worsening. No abdominal pain reported. Had family gathering around [place] but no positive sick contact. History is limited, obtained from because of patient's dementia Timing/Duration: day(s) (2), gradual onset, worse Severity: moderate Associated Symptoms: nausea, vomiting, shortness of breath, cough, chills, fever, weakness, No abdominal pain Allergies/Adverse Reactions: No Known Drug Allergies Allergy (Verified 03/17/19 13:45) Home Medications: Amlodipine Besylate [Norvasc] 10 mg PO DAILY 10/26/18 [History] Calcium Carb, Citrate/Vit D3 [Calcium + D3 ER Tablet] 1 each PO DAILY 10/26/18 [History] Cyanocobalamin/Folic AC/Vit B6 [B Complex-Folic Acid Tablet] 1 each PO DAILY 10/26/18 [History] Denosumab 60 mg [Prolia 60 mg Injection] 60 mg SQ UD 10/26/18 [History] Donepezil HCl 15 mg PO HS 10/26/18 [History] Duloxetine HCl [Cymbalta] 30 mg PO BID 10/26/18 [History] Famotidine 20 mg PO BID 10/26/18 [History] Meclizine HCl 50 mg PO BID 10/26/18 [History] Melatonin 10 mg PO HS 10/26/18 [History] PANTOPRAZOLE 40 mg Tablet [Protonix 40MG Tablet] 40 mg PO HS 10/26/18 [History] metHOTREXate sodium [Trexall] 10 mg PO UD 10/26/18 [History] Memantine HCl [Memantine HCl ER] 28 mg PO DAILY 03/17/19 [History] Tamsulosin HCl 0.4 mg PO DAILY 03/17/19 [History] B Complex with Vitamin C [Surbex W-C] 1 each PO DAILY 07/07/20 [History] Ergocalciferol (Vitamin D2) [Vitamin D2] 1,250 mcg PO QDP PRN 07/07/20 [History] Folic Acid 1 mg [Folate 1 mg] 1 mg PO DAILY 07/07/20 [History] Hydroxyzine Pamoate 25 mg PO DAILY 07/07/20 [History] Oxycodone HCl/Acetaminophen [Percocet 7.5-325 mg Tablet] 1 each PO QID PRN 07/07/20 [History] Prednisone 10 mg [Deltasone 10 mg] 3 mg PO TID 07/07/20 [History] Propranolol HCl 40 mg PO BID 07/07/20 [History] Turmeric/Turmeric Root Extract [Turmeric 450-50 mg Capsule] 1 each PO DAILY 09/22 [History] Hx Tetanus, Diphtheria Vaccination/Date Given: No Hx Influenza Vaccination/Date Given: Yes Hx Pneumococcal Vaccination/Date Given: No Immunizations Up to Date: Yes Travel Risk - International Travel Have you traveled outside of the country in past 3 weeks: No - Coronavirus Screening Symptoms: Fever, Cough: New Onset, Vomiting/Diarrhea Close contact with a COVID-19 positive Pt in past 14-21 Days: No - Review of Systems Constitutional: Fever, Chills, Fatigue Eyes: No Symptoms Ears, Nose, & Throat: Nose Congestion Respiratory: Cough, Dyspnea, Dyspnea on Exertion (GHOSH), Wheezing Cardiac: No Symptoms Abdominal/Gastrointestinal: Nausea, Vomiting Genitourinary Symptoms: Incontinence Musculoskeletal: Arthralgias Skin: No Symptoms All Other Systems: Unable due to dementia - Past Medical History Pertinent Past Medical History: Yes Neurological History: Migraines ENT History: Cataracts, Other Cardiac History: High Cholesterol, Hypertension Respiratory History: No Pertinent History Endocrine Medical History: No Pertinent History Musculoskeletal History: Arthritis GI Medical History: GERD, Ulcer History: No Pertinent History Psycho-Social History: No Pertinent History Male Reproductive Disorders: No Pertinent History Other Medical History: dementia - Past Surgical History Past Surgical History: Yes Neuro Surgical History: No Pertinent History Cardiac: No Pertinent History Respiratory: No Pertinent History Gastrointestinal: Appendectomy, Colon Resection Genitourinary: No Pertinent History Musculoskeletal: Joint Replacement, Orthopedic Surgery Male Surgical History: Vasectomy Other Surgical History: left knee replacement, colon and bladder were growing together hiatal henia repain, neck surgery with screws and plate (metal) - Social History Smoking Status: Former smoker Exposure to second hand smoke: No Drug Use: none Patient Lives Alone: No - Nursing Vital Signs Nursing Vital Signs: Initial Vital Signs Temperature 103.3 F 07/07/20 07:15 Pulse Rate 68 07/07/20 07:15 Respiratory Rate 24 07/07/20 07:15 Blood Pressure 142/79 07/07/20 07:15 O2 Sat by Pulse Oximetry 96 07/07/20 07:15 Pain Scale Pain Intensity 0 - Physical Exam General Appearance: mild distress, alert Eye Exam: eyes nml inspection Ears, Nose, Throat Exam: pharyngeal erythema Neck Exam: normal inspection, supple, full range of motion Respiratory Exam: diminished breath sounds, crackles/rales, wheezing Cardiovascular Exam: regular rate/rhythm, normal heart sounds Gastrointestinal/Abdomen Exam: soft, normal bowel sounds, No tenderness Back Exam: normal inspection Extremity Exam: normal inspection, normal range of motion, pelvis stable Neurologic Exam: alert, 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, sensation nml, No oriented x 3, No motor deficits Skin Exam: normal color SpO2 Interpretation: borderline oxygenation SpO2: 96 O2 Delivery: Nasal Cannula - Course Nursing assessment & vital signs reviewed: Yes EKG Interpreted by Me: RATE, Sinus Rhythm (Nonspecific ST and T wave changes), NORMAL AXIS, NORMAL INTERVALS Ordered Tests: Active Orders 24 hr Category Date Time Status Community Nurse STAT Care 07/07/20 06:45 Active EKG-ER Only STAT Care 07/07/20 06:43 Active [facility] COVID Approval STAT Care 07/07/20 06:44 Completed Oxygen-ED Only High Flow per RT 50% Care 07/07/20 06:43 Active CHEST 1 VIEW (PORTABLE) Stat Exams 07/07/20 06:46 Completed ARTERIAL BLOOD GASES Stat Lab 07/07/20 07:00 Completed CBC Stat Lab 07/07/20 06:50 Completed CMP Stat Lab 07/07/20 06:50 Completed CULTURE,URINE Stat Lab 07/07/20 06:53 Ordered D-DIMER QUANTITATIVE Stat Lab 07/07/20 06:50 Completed LDH-LACTATE DEHYDROGENASE Stat Lab 07/07/20 06:50 Completed MAG [MAGNESIUM] Stat Lab 07/07/20 07:25 Completed NT PRO BNP Stat Lab 07/07/20 07:25 Completed PROTIME WITH INR Stat Lab 07/07/20 06:50 Completed TROPONIN Stat Lab 07/07/20 06:50 Completed UA W/RFX UR CULTURE Stat Lab 07/07/20 06:53 Completed Medication Summary Generic Name Dose Route Start Last Admin Trade Name Freq PRN Reason Stop Dose Admin Lactated Ringer's 1,000 mls @ 50 mls/hr 07/07/20 07:00 07/07/20 06:50 Lactated Ringers IV 08/06/20 06:59 50 mls/hr .Q20H POPPY Administration Ceftriaxone Sodium/Dextrose 1 g in 50 mls @ 100 mls/hr 07/07/20 10:00 07/07/20 08:10 Rocephin 1 Gm-D5w 50 Ml Bag IV 08/06/20 09:59 Infused Q24H10 POPPY Infusion Remdesivir 200 mg/ Sodium 250 mls @ 125 mls/hr 07/07/20 08:27 07/07/20 09:26 Chloride IV 07/07/20 10:26 125 mls/hr ONCE ONE Administration Discontinued Medications Generic Name Dose Route Start Last Admin Trade Name Freq PRN Reason Stop Dose Admin Acetaminophen 650 mg 07/07/20 06:52 07/07/20 06:58 Feverall 650 Mg KS 07/07/20 06:53 650 mg STAT ONE Administration Acetaminophen Confirm 07/07/20 06:53 Feverall 325 Mg Administered 07/07/20 06:54 Dose 650 mg .ROUTE .STK-MED ONE Albuterol/Ipratropium 2 puff 07/07/20 08:30 Combivent Inhaler Common Canister IH 08/06/20 08:29 UD POPPY Dexamethasone Sodium Phosphate 6 mg 07/07/20 08:26 07/07/20 09:27 Decadron 4 Mg Inj IV 07/07/20 08:27 6 mg STAT ONE Administration Azithromycin 500 mg in 250 mls @ 250 mls/hr 07/07/20 07:26 07/07/20 07:35 Zithromax 500 Mg/ 250 Ml Nacl Premix IV 07/07/20 08:25 250 mls/hr STAT STA 250 mls/hr Administration Azithromycin Confirm 07/07/20 07:29 Zithromax 500 Mg/ 250 Ml Nacl Premix Administered 07/07/20 07:30 Dose 500 mg in 250 mls @ ud IV .STK-MED ONE Lab/Rad Data: Laboratory Result Diagrams 07/07/20 06:50 07/07/20 06:50 Laboratory Results 07/07/20 07/07/20 07/07/20 Range/Units 07:25 07:00 06:55 WBC (4.0-10.5) K/mm3 RBC (4.1-5.6) M/mm3 Hgb (12.5-18.0) gm/dl Hct (42-50) % MCV (78-100) fl MCH (26-32) pg MCHC (32-36) g/dl RDW (11.5-14.0) % Plt Count (150-450) K/mm3 MPV (7.5-11.0) fl PT (8.83-12.87) SECONDS INR (0.8-3.0) D-Dimer (215-500) ng/mL Puncture Site LEFT RADIAL pCO2 38 (35-45) mmHg pO2 81 (75-100) mmHg Base Excess 3.9 H (-2.0-2.0) O2 Saturation 95.8 (94-100) g/dF ABG pH 7.47 H (7.35-7.45) ABG HCO3 27.7 (22-28) ABG O2 Sat (Measured) 98.2 (95-100) % Garth Test YES A-a Gradient 100 a/A Ratio 0.45 Hemoglobin 12.8 Carboxyhemoglobin 1.4 (0.0-6.9) % THgb Methemoglobin 0.9 L (1.4-1.5) % Temperature 37.0 C POC O2 Flow Rate 32 % Sodium (137-145) mmol/L Potassium 3.0 L (3.5-5.1) mmol/L Chloride (98-107) mmol/L Carbon Dioxide (22-30) mmol/L Anion Gap (5-15) MEQ/L BUN (9-20) mg/dL Creatinine (0.66-1.25) mg/dL Estimated GFR ML/MIN Glucose (74-106) mg/dL Calcium (8.4-10.2) mg/dL Magnesium 1.4 L (1.6-2.3) mg/dL Total Bilirubin (0.2-1.3) mg/dL AST (17-59) U/L ALT (0-50) U/L Alkaline Phosphatase (38-126) U/L Lactate Dehydrogenase (120-246) U/L Troponin I (0.000-0.034) ng/mL NT-Pro-B Natriuret Pep 332 (0-1800) pg/mL Serum Total Protein (6.3-8.2) g/dL Albumin (3.5-5.0) g/dL Urine Color (YELLOW) Urine Appearance (CLEAR) Urine pH (5-6) Ur Specific [place] (1.005-1.025) Urine Protein (Negative) Urine Ketones (NEGATIVE) Urine Blood (0-5) Abdullahi/ul Urine Nitrite (NEGATIVE) Urine Bilirubin (NEGATIVE) Urine Urobilinogen (0-1) mg/dL Ur Leukocyte Esterase (NEGATIVE) Urine WBC (Auto) (0-5) /HPF Urine RBC (Auto) (0-2) /HPF U Epithel Cells (Auto) (FEW) /HPF Urine Bacteria (Auto) (NEGATIVE) /HPF Urine Mucus (Auto) (NEGATIVE) /HPF Urine Yeast (Budding) (NEGATIVE) /HPF Urine Culture Reflexed (NO) Urine Glucose (NEGATIVE) mg/dL SARS-CoV-2 (PCR) POSITIVE A (NEGATIVE) 07/07/20 07/07/20 07/07/20 Range/Units 06:53 06:50 06:50 WBC (4.0-10.5) K/mm3 RBC (4.1-5.6) M/mm3 Hgb (12.5-18.0) gm/dl Hct (42-50) % MCV (78-100) fl MCH (26-32) pg MCHC (32-36) g/dl RDW (11.5-14.0) % Plt Count (150-450) K/mm3 MPV (7.5-11.0) fl PT 14.2 H (8.83-12.87) SECONDS INR 1.25 (0.8-3.0) D-Dimer 585 H* (215-500) ng/mL Puncture Site pCO2 (35-45) mmHg pO2 (75-100) mmHg Base Excess (-2.0-2.0) O2 Saturation (94-100) g/dF ABG pH (7.35-7.45) ABG HCO3 (22-28) ABG O2 Sat (Measured) (95-100) % Garth Test A-a Gradient a/A Ratio Hemoglobin Carboxyhemoglobin (0.0-6.9) % THgb Methemoglobin (1.4-1.5) % Temperature C POC O2 Flow Rate % Sodium 138 (137-145) mmol/L Potassium 3.2 L (3.5-5.1) mmol/L Chloride 100 (98-107) mmol/L Carbon Dioxide 30 (22-30) mmol/L Anion Gap 11.4 (5-15) MEQ/L BUN 9 (9-20) mg/dL Creatinine 0.78 (0.66-1.25) mg/dL Estimated GFR > 60.0 ML/MIN Glucose 114 H (74-106) mg/dL Calcium 8.8 (8.4-10.2) mg/dL Magnesium (1.6-2.3) mg/dL Total Bilirubin 0.40 (0.2-1.3) mg/dL AST 35 (17-59) U/L ALT 14 (0-50) U/L Alkaline Phosphatase 58 (38-126) U/L Lactate Dehydrogenase 196 (120-246) U/L Troponin I < 0.012 (0.000-0.034) ng/mL NT-Pro-B Natriuret Pep (0-1800) pg/mL Serum Total Protein 7.2 (6.3-8.2) g/dL Albumin 4.1 (3.5-5.0) g/dL Urine Color YELLOW (YELLOW) Urine Appearance CLEAR (CLEAR) Urine pH 5.0 (5-6) Ur Specific [place] 1.015 (1.005-1.025) Urine Protein 30 (Negative) Urine Ketones SMALL (NEGATIVE) Urine Blood SMALL (0-5) Abdullahi/ul Urine Nitrite NEGATIVE (NEGATIVE) Urine Bilirubin NEGATIVE (NEGATIVE) Urine Urobilinogen NEGATIVE (0-1) mg/dL Ur Leukocyte Esterase TRACE (NEGATIVE) Urine WBC (Auto) 11-15 (0-5) /HPF Urine RBC (Auto) 0-2 (0-2) /HPF U Epithel Cells (Auto) RARE (FEW) /HPF Urine Bacteria (Auto) RARE (NEGATIVE) /HPF Urine Mucus (Auto) SLIGHT (NEGATIVE) /HPF Urine Yeast (Budding) Occasional (NEGATIVE) /HPF Urine Culture Reflexed ORDERED SEPARATELY (NO) Urine Glucose NEGATIVE (NEGATIVE) mg/dL SARS-CoV-2 (PCR) (NEGATIVE) 07/07/20 Range/Units 06:50 WBC 9.7 (4.0-10.5) K/mm3 RBC 4.08 L (4.1-5.6) M/mm3 Hgb 13.0 (12.5-18.0) gm/dl Hct 39.0 L (42-50) % MCV 95.6 (78-100) fl MCH 31.9 (26-32) pg MCHC 33.3 (32-36) g/dl RDW 16.9 H (11.5-14.0) % Plt Count 204 (150-450) K/mm3 MPV 11.8 H (7.5-11.0) fl PT (8.83-12.87) SECONDS INR (0.8-3.0) D-Dimer (215-500) ng/mL Puncture Site pCO2 (35-45) mmHg pO2 (75-100) mmHg Base Excess (-2.0-2.0) O2 Saturation (94-100) g/dF ABG pH (7.35-7.45) ABG HCO3 (22-28) ABG O2 Sat (Measured) (95-100) % Garth Test A-a Gradient a/A Ratio Hemoglobin Carboxyhemoglobin (0.0-6.9) % THgb Methemoglobin (1.4-1.5) % Temperature C POC O2 Flow Rate % Sodium (137-145) mmol/L Potassium (3.5-5.1) mmol/L Chloride (98-107) mmol/L Carbon Dioxide (22-30) mmol/L Anion Gap (5-15) MEQ/L BUN (9-20) mg/dL Creatinine (0.66-1.25) mg/dL Estimated GFR ML/MIN Glucose (74-106) mg/dL Calcium (8.4-10.2) mg/dL Magnesium (1.6-2.3) mg/dL Total Bilirubin (0.2-1.3) mg/dL AST (17-59) U/L ALT (0-50) U/L Alkaline Phosphatase (38-126) U/L Lactate Dehydrogenase (120-246) U/L Troponin I (0.000-0.034) ng/mL NT-Pro-B Natriuret Pep (0-1800) pg/mL Serum Total Protein (6.3-8.2) g/dL Albumin (3.5-5.0) g/dL Urine Color (YELLOW) Urine Appearance (CLEAR) Urine pH (5-6) Ur Specific [place] (1.005-1.025) Urine Protein (Negative) Urine Ketones (NEGATIVE) Urine Blood (0-5) Abdullahi/ul Urine Nitrite (NEGATIVE) Urine Bilirubin (NEGATIVE) Urine Urobilinogen (0-1) mg/dL Ur Leukocyte Esterase (NEGATIVE) Urine WBC (Auto) (0-5) /HPF Urine RBC (Auto) (0-2) /HPF U Epithel Cells (Auto) (FEW) /HPF Urine Bacteria (Auto) (NEGATIVE) /HPF Urine Mucus (Auto) (NEGATIVE) /HPF Urine Yeast (Budding) (NEGATIVE) /HPF Urine Culture Reflexed (NO) Urine Glucose (NEGATIVE) mg/dL SARS-CoV-2 (PCR) (NEGATIVE) - Progress Progress: improved, re-examined Progress Note: 07/07/20 09:00 79 years old is evaluated for generalized weakness fatigue with cough and fever causing confusion. Is given Tylenol for symptomatic relief of fever. Work-up showed normal white count and lactate. Patient is getting hypoxic on room air and is started on 3 L oxygen currently satting around 96%. X-ray showed bilateral infiltrative process and started on antibiotics. He does have UTI. He has a COVID-19 positive. Ordered remdesivir and dexamethasone. Discussed with Dr. Sommers and patient is admitted. Discussed with Dr.: Other (Dr. Sommers) Counseled pt/family regarding: lab results, diagnosis, rad results - Departure Departure Disposition: Observation Clinical Impression: Acute UTI, COVID-19 Respiratory failure Qualifiers: Chronicity: acute Respiratory failure complication: hypoxia Qualified Code(s): J96.01 - Acute respiratory failure with hypoxia Pneumonia Qualifiers: Pneumonia type: due to unspecified organism Laterality: bilateral Lung location: unspecified part of lung Qualified Code(s): J18.9 - Pneumonia, unspecified organism Condition: Fair Critical Care Time: Yes Critical Care Time(excluding separately billable procedures): Critical 30-74 mins
--- NOTE | 2020-07-07 08:01 | XRAY ---
Indication: Short of breath. Comparison: None Portable chest hyperinflated and clear with incidental scattered calcified granulomas. Heart is not enlarged. Descending aorta tortuous. Bony thorax intact with osteopenia, degenerative changes, and lower cervical fusion hardware. Impression: Nonacute hyperinflated chest with chronic features.
[2020-07-07] MEDS ORDERED: Decadron 4 MG INJ IV ONE (08:26)
[2020-07-07] MEDS ORDERED: REMDESIVIR 200 MG in Sodium Chloride 0.9% 250 ML 250 ML IV ONE (08:27)
[2020-07-07] MEDS ORDERED: Combivent Inhaler COMMON CANISTER IH SCH (08:30)
[2020-07-07] MEDS ORDERED: ROCEPHIN 1 Gm-D5w 50 ml Bag** 1 G/50 ML IVPB IV SCH (10:00)
[2020-07-07] MEDS ORDERED: Zofran 4 MG/2 ML VIAL IV PRN (10:33)
[2020-07-07] MEDS: Sodium Chloride 0.9% 1000 ML 1,000 ML IV SCH (10:43)
[2020-07-07] MEDS: PROTONIX 40 MG IV IV SCH (10:44)
[2020-07-07] MEDS: ENOXAPARIN SODIUM SQ SCH (10:44)
[2020-07-07] MEDS: FEVERALL 650 MG RC PRN ×2 (10:58→22:36)
[2020-07-07] MEDS ORDERED: MOTRIN 200 MG PO PRN (11:57)
[2020-07-07] MEDS: Decadron 4 MG INJ IV SCH (22:36)
[2020-07-08] MEDS: Sodium Chloride 0.9% 1000 ML 1,000 ML IV SCH (05:18)
[2020-07-08 05:22] LABS: Hematocrit 38.1 % (42-50); Hemoglobin 12.8 gm/dl (12.5-18.0); Mean Cell Volume 95.7 fl (78-100); Mean Corpuscular Hemoglobin 32.2 pg (26-32); Mean Corpuscular Hgb Concent. 33.6 g/dl (32-36); Mean Platelet Volume 12.3 fl (7.5-11.0); Platelet Count 191 K/mm3 (150-450); Red Blood Count 3.98 M/mm3 (4.1-5.6); Red Cell Distribution Width 16.8 % (11.5-14.0); White Blood Count 9.8 K/mm3 (4.0-10.5)
[2020-07-08 05:25] LABS: ALBUMIN 3.7 g/dL (3.5-5.0); ALKALINE PHOSPHATASE 39 U/L (38-126); ANION GAP 12.5 MEQ/L (5-15); BLOOD UREA NITROGEN 15 mg/dL (9-20); CHLORIDE 106 mmol/L (98-107); Calcium 8.3 mg/dL (8.4-10.2); Carbon Dioxide 26 mmol/L (22-30); Creatinine 1 0.95 mg/dL (0.66-1.25); EST GLOMERULAR FILTRATION RATE > 60.0 ML/MIN; Glucose 125 mg/dL (74-106); Potassium 3.3 mmol/L (3.5-5.1); SGOT/AST 43 U/L (17-59); SGPT/ALT 16 U/L (0-50); SODIUM 141 mmol/L (137-145); Total Protein 6.7 g/dL (6.3-8.2)
[2020-07-08 05:32] LABS: INR 1.38 (0.8-3.0); PROTIME 15.6 SECONDS (8.83-12.87)
[2020-07-08] MEDS ORDERED: METHOTREXATE SODIUM 10 MG PO SCH (10:45)
[2020-07-08] MEDS ORDERED: MEDICATION INTERVENTION PO SCH ×2 (11:00)
[2020-07-08] MEDS: REMDESIVIR 100 MG in Sodium Chloride 0.9% 100 ML IVPB 100 ML IV SCH (11:38)
[2020-07-08] MEDS: Decadron 4 MG INJ IV SCH ×2 (11:39→22:23)
[2020-07-08] MEDS: ENOXAPARIN SODIUM SQ SCH (11:40)
[2020-07-08] MEDS: DELTASONE 5 MG PO SCH (11:45)
[2020-07-08] MEDS: PROTONIX 40 MG IV IV SCH (11:56)
--- NOTE | 2020-07-08 12:06 | HP ---
CHIEF COMPLAINT: High fever, confusion, positive COVID test. HISTORY OF PRESENT ILLNESS: The patient presented to the emergency room on 07/07/2020 with the above complaints. His stated it began two days ago. He threw up this evening. Around 0300 hours he became weaker. He has dementia but normally talks and walks. He was brought in because temperature going up, decreasing mental status and fall risk. He has not been out of the house. MEDICATIONS: Norvasc 10, calcium D3 one q.d., B12, B6, denosumab 60 (Prolia) injection once a month, donepezil (Aricept) 10 h.s., Cymbalta 30 mg b.i.d., Pepcid 20 q.d., meclizine 50 b.i.d., melatonin 10 h.s., Protonix 40 q.d., methotrexate (Trexall) 10 mg a day, Namenda 28 q.d., Flomax 0.4 q.d., vitamin D supplement, folic acid supplement, hydralazine 25 q.d., Percocet 7.5/325 four times a day, prednisone 10 q.d., propranolol 40 q.d., Tumeric. The patient does not have a recent tetanus shot or taken his flu shot this year. ALLERGIES: NKDA. PAST MEDICAL HISTORY: Hypertension, hyperlipidemia, arthritis, dementia, chronic fatigue, inability to ambulate, incontinence of urine, cough, fever up to 103F, problems breathing. Cataracts. Cardiac history, high cholesterol, hypertension. Gastroesophageal reflux disease. Main medical problem is dementia. PAST SURGICAL HISTORY: Appendectomy. Colon resection. Hip replacement. Left knee replacement. Neck surgery with screws and plate. REVIEW OF SYSTEMS: CONSTITUTIONAL: Fever, chills, sweats, weakness. HEENT: Does seem to hear and see normally according to . RESPIRATORY: Shortness of breath, cough, wheezing. Nonsmoker. CVS: No symptoms. ABDOMEN: He has been throwing up at night. : Incontinent normally. MUSCULOSKELETAL: He has arthritis, chronic maybe rheumatoid arthritis looking at his medicines. SOCIAL HISTORY: He lives with his and has a son. Nonsmoker, quit smoking years ago. PHYSICAL EXAMINATION: VITAL SIGNS: Temperature 103F, pulse 68, respirations 24, blood pressure 140/80. O2 saturation 96. GENERAL: The patient responded to touch. He is not talking to me as he is very confused. HEENT: Pupils equal and reactive to light. NECK: Supple without adenopathy or JVD. Scar on the back of the neck. CHEST: Clear. CVS: Slightly fast. No murmurs or gallops. Sinus rhythm. ABDOMEN: Soft. No masses or organomegaly. Several scars from surgeries. EXTREMITIES: No edema. Does move all of them when I touch them. IMPRESSION: The patient has COVID, normal chest x-ray. D-dimer was only 500. His white count is only 9.7. PLAN: The patient will be treated with Remdesivir, Decadron, slowly replace IV fluids due to vomiting. Try to continue some of his dementia medicines and others. PROGNOSIS: Fair.
[2020-07-08] MEDS: Inderal 20 MG PO SCH ×2 (13:33→22:23)
[2020-07-08] MEDS: Cymbalta 30 MG Capsule PO SCH (13:33)
[2020-07-08] MEDS: Flomax 0.4 MG PO SCH (13:33)
[2020-07-08] MEDS: ATARAX 25 MG PO SCH (13:34)
[2020-07-08] MEDS: NORVASC 5 MG PO SCH (13:34)
[2020-07-08] MEDS: Pepcid 20 MG PO SCH ×2 (13:34→22:23)
--- NOTE | 2020-07-08 14:48 | PROG NOTE ---
CHIEF COMPLAINT: Confusion, vomiting. HISTORY: The patient is a 79 year old white male who was brought in by the family. He suffers from pretty severe dementia but on Wednesday, which is three days ago, he got up and started vomiting and was very weak and not his usual self. He had been brought to the emergency room on 07/07/2019 where he tested positive for COVID. He really was not talking at that time. However, he was hypoxic slightly and oxygen was applied. MEDICATIONS: Norvasc 10 q.d., calcium with vitamin D3, folic acid, B6 combination, Prolia 60 q.month, Aricept 15 q.d., Cymbalta 30 q.d., Pepcid 20 b.i.d., meclizine 50 b.i.d., melatonin 10 h.s., Protonix 40 q.d., methotrexate 10 q.d. unknown reason, memantine 28 mg q.d., Flomax 0.4 q.d., vitamin D2 q.d. 250 mg, folic acid 1 mg q.d., Percocet 7.5/325 one every six hours PRN, prednisone 10 q.d., propranolol 40 b.i.d., Tumeric extract 450 q.d. ALLERGIES: NKDA. PAST MEDICAL HISTORY: Hypertension, hyperlipidemia, arthritis of the knees, dementia probably Alzheimer's type. Migraine, cataracts, gastroesophageal reflux disease with history of ulcer and dementia. PAST SURGICAL HISTORY: Appendectomy. Colon resection. Knee replacement. Vasectomy. 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 Cervical surgery with screws and plates. REVIEW OF SYSTEMS: HEENT: In the past he has been hard of hearing. Vision has been okay. CONSTITUTIONAL: He has a fever of 103F, chilling, fatigue and is not talking. RESPIRATORY: He is short of breath and coughing. CVS: No symptoms. ABDOMEN: Vomited on admission. : He is incontinent normally. MUSCULOSKELETAL: Joint pain knees and shoulders. SOCIAL HISTORY: Former smoker. He is and lives with his . PHYSICAL EXAMINATION: Vital signs on admission: Temperature 103F, pulse 68, respirations 24, blood pressure 142/79. O2 saturation 96% on 4 liters. Pain intensity 0. GENERAL: The patient is kind of a thin man who looks acutely ill. He is not obese. HEENT: Seems to hear and see. CHEST: Few crackles bilateral. CVS: Regular rate. No murmurs or gallops. ABDOMEN: Thin. No masses or organomegaly. EXTREMITIES: Scar over his neck and over his right knee. No edema. Fair color. IMPRESSION: The patient has COVID with vomiting, decreased responsiveness, high fever. White count is normal. D-dimer is markedly elevated. INR is 1.38. D-dimer was 1,700. Creatinine 0.95, potassium 3.3. White count normal at 9.8. Chest x-ray showed fluffiness bilateral typical of COVID. His BNP was normal at 332. Potassium minimally low at 3.2. PLAN: The patient will be started on Decadron, Remdesivir, anticoagulated with Lovenox. He is not responsive probably due to the fever and illness and his underlying dementia at this time and expected that will clear up with time. PROGNOSIS: Fair.
[2020-07-08] MEDS ORDERED: CEPACOL SORE THROAT LOZENGE PO PRN (19:12)
[2020-07-08] MEDS ORDERED: NON-FORMULARY ITEM (Propranolol Hcl [Propranolol Hcl] 40 MG) PO SCH (22:00)
[2020-07-08] MEDS ORDERED: NON-FORMULARY ITEM (Melatonin [Melatonin] 10 MG) PO SCH (22:00)
[2020-07-08] MEDS: Protonix 40MG Tablet PO SCH (22:23)
[2020-07-09] MEDS: Sodium Chloride 0.9% 1000 ML 1,000 ML IV SCH (00:12)
[2020-07-09] MEDS: PERCOCET TABLET 5/325MG PO PRN (01:22)
[2020-07-09] MEDS: Phenergan 25 MG INJ IV PRN ×2 (02:59→14:49)
[2020-07-09 06:36] LABS: Hematocrit 35.3 % (42-50); Hemoglobin 11.9 gm/dl (12.5-18.0); Mean Cell Volume 94.6 fl (78-100); Mean Corpuscular Hemoglobin 31.9 pg (26-32); Mean Corpuscular Hgb Concent. 33.7 g/dl (32-36); Mean Platelet Volume 12.9 fl (7.5-11.0); Platelet Count 198 K/mm3 (150-450); Red Blood Count 3.73 M/mm3 (4.1-5.6); Red Cell Distribution Width 16.9 % (11.5-14.0); White Blood Count 9.6 K/mm3 (4.0-10.5)
[2020-07-09 06:48] LABS: INR 1.28 (0.8-3.0); PROTIME 14.5 SECONDS (8.83-12.87)
[2020-07-09 06:51] LABS: ALBUMIN 3.2 g/dL (3.5-5.0); ALKALINE PHOSPHATASE 37 U/L (38-126); BLOOD UREA NITROGEN 26 mg/dL (9-20); CHLORIDE 109 mmol/L (98-107); Calcium 7.7 mg/dL (8.4-10.2); Carbon Dioxide 28 mmol/L (22-30); Creatinine 1 0.78 mg/dL (0.66-1.25); EST GLOMERULAR FILTRATION RATE > 60.0 ML/MIN; Glucose 147 mg/dL (74-106); Potassium 3.3 mmol/L (3.5-5.1); SGOT/AST 52 U/L (17-59); SGPT/ALT 21 U/L (0-50); SODIUM 142 mmol/L (137-145); Total Protein 6.1 g/dL (6.3-8.2)
[2020-07-09] MEDS: ATARAX 25 MG PO SCH (09:44)
[2020-07-09] MEDS: Decadron 4 MG INJ IV SCH ×2 (09:44→21:57)
[2020-07-09] MEDS: Cymbalta 30 MG Capsule PO SCH (09:44)
[2020-07-09] MEDS: DELTASONE 5 MG PO SCH (09:45)
[2020-07-09] MEDS: Flomax 0.4 MG PO SCH (09:46)
[2020-07-09] MEDS: ENOXAPARIN SODIUM SQ SCH (09:46)
[2020-07-09] MEDS: Pepcid 20 MG PO SCH ×2 (09:47→21:57)
[2020-07-09] MEDS: Inderal 20 MG PO SCH ×2 (09:47→21:57)
[2020-07-09] MEDS: NORVASC 5 MG PO SCH (09:47)
[2020-07-09] MEDS ORDERED: DULOXETINE HCL 30 MG PO SCH (10:00)
[2020-07-09] MEDS ORDERED: NON-FORMULARY ITEM (Amlodipine Besylate [Norvasc] 10 MG) PO SCH (10:00)
[2020-07-09] MEDS ORDERED: NON-FORMULARY ITEM (Hydroxyzine Pamoate [Hydroxyzine Pamoate] 25 MG) PO SCH (10:00)
[2020-07-09] MEDS ORDERED: PREDNISONE 5 MG PO SCH (10:00)
[2020-07-09] MEDS: REMDESIVIR 100 MG in Sodium Chloride 0.9% 100 ML IVPB 100 ML IV SCH (10:04)
[2020-07-09] MEDS: Klor Con 10 MEQ PO SCH (11:55)
[2020-07-09] MEDS: Protonix 40MG Tablet PO SCH (21:58)
[2020-07-09] MEDS: Namenda 5 MG PO SCH (21:58)
[2020-07-10 05:47] LABS: ALBUMIN 3.5 g/dL (3.5-5.0); ALKALINE PHOSPHATASE 47 U/L (38-126); ANION GAP 7.4 MEQ/L (5-15); BLOOD UREA NITROGEN 23 mg/dL (9-20); CHLORIDE 108 mmol/L (98-107); Calcium 8.1 mg/dL (8.4-10.2); Carbon Dioxide 29 mmol/L (22-30); Creatinine 1 0.67 mg/dL (0.66-1.25); EST GLOMERULAR FILTRATION RATE > 60.0 ML/MIN; Glucose 121 mg/dL (74-106); Potassium 3.2 mmol/L (3.5-5.1); SGOT/AST 100 U/L (17-59); SGPT/ALT 60 U/L (0-50); SODIUM 141 mmol/L (137-145); Total Protein 6.3 g/dL (6.3-8.2)
[2020-07-10 06:00] LABS: INR 1.23 (0.8-3.0); PROTIME 13.9 SECONDS (8.83-12.87)
[2020-07-10] MEDS: DELTASONE 5 MG PO SCH (10:20)
[2020-07-10] MEDS: NORVASC 5 MG PO SCH (10:26)
[2020-07-10] MEDS: Cymbalta 30 MG Capsule PO SCH (10:26)
[2020-07-10] MEDS: Decadron 4 MG INJ IV SCH ×2 (10:26→21:54)
[2020-07-10] MEDS: Inderal 20 MG PO SCH ×2 (10:26→21:54)
[2020-07-10] MEDS: REMDESIVIR 100 MG in Sodium Chloride 0.9% 100 ML IVPB 100 ML IV SCH (10:26)
[2020-07-10] MEDS: Namenda 5 MG PO SCH ×2 (10:26→21:54)
[2020-07-10] MEDS: Klor Con 10 MEQ PO SCH ×2 (10:26→21:54)
[2020-07-10] MEDS: Pepcid 20 MG PO SCH ×2 (10:26→21:54)
[2020-07-10] MEDS: ATARAX 25 MG PO SCH (10:27)
[2020-07-10] MEDS: Flomax 0.4 MG PO SCH (10:27)
[2020-07-10] MEDS: ENOXAPARIN SODIUM SQ SCH (10:27)
[2020-07-10] MEDS: Protonix 40MG Tablet PO SCH (21:54)
[2020-07-11] MEDS: PERCOCET TABLET 5/325MG PO PRN (02:57)
[2020-07-11 06:09] LABS: INR 1.2 (0.8-3.0); PROTIME 13.6 SECONDS (8.83-12.87)
[2020-07-11 06:14] LABS: ALBUMIN 3.3 g/dL (3.5-5.0); ALKALINE PHOSPHATASE 52 U/L (38-126); ANION GAP 9.6 MEQ/L (5-15); BLOOD UREA NITROGEN 25 mg/dL (9-20); CHLORIDE 112 mmol/L (98-107); Calcium 8.2 mg/dL (8.4-10.2); Carbon Dioxide 26 mmol/L (22-30); Creatinine 1 0.74 mg/dL (0.66-1.25); EST GLOMERULAR FILTRATION RATE > 60.0 ML/MIN; Glucose 139 mg/dL (74-106); Potassium 3.6 mmol/L (3.5-5.1); SGOT/AST 53 U/L (17-59); SGPT/ALT 57 U/L (0-50); SODIUM 144 mmol/L (137-145); Total Protein 6.2 g/dL (6.3-8.2)
[2020-07-11 08:37] VITALS: BP 147/75; O2SAT 92
[2020-07-11] MEDS: REMDESIVIR 100 MG in Sodium Chloride 0.9% 100 ML IVPB 100 ML IV SCH (09:00)
[2020-07-11] MEDS: ATARAX 25 MG PO SCH (09:19)
[2020-07-11] MEDS: ENOXAPARIN SODIUM SQ SCH (09:19)
[2020-07-11] MEDS: Inderal 20 MG PO SCH (09:20)
[2020-07-11] MEDS: Namenda 5 MG PO SCH (09:20)
[2020-07-11] MEDS: NORVASC 5 MG PO SCH (09:20)
[2020-07-11] MEDS: DELTASONE 5 MG PO SCH (09:21)
[2020-07-11] MEDS: Decadron 4 MG INJ IV SCH (09:21)
[2020-07-11] MEDS: Flomax 0.4 MG PO SCH (09:22)
[2020-07-11] MEDS: Cymbalta 30 MG Capsule PO SCH (09:23)
[2020-07-11] MEDS: Klor Con 10 MEQ PO SCH (09:23)
[2020-07-11] MEDS: Pepcid 20 MG PO SCH (09:24)
[2020-07-11 10:29] VITALS: PULSE 91
[2020-07-14] MEDS ORDERED: TREXALL 2.5 MG PO SCH (10:00)
== END 2020-07-11 11:15 | disposition home or self-care (01) | DRG 178 ==
LOC: ED 06:35 → MED SURG 08:44 → OBSVTOIN 12:00
PROVIDERS: ADMIT Family Medicine; ATTEND Family Medicine
DX: U07.1 COVID-19 (principal); N39.0 Urinary tract infection, site not specified; R53.1 Weakness; I10 Essential (primary) hypertension; E78.5 Hyperlipidemia, unspecified; R41.0 Disorientation, unspecified; F03.90 Unspecified dementia, unspecified severity, without behavioral disturbance, psychotic disturbance, mood disturbance, and anxiety; R11.2 Nausea with vomiting, unspecified; Z79.899 Other long term (current) drug therapy; E78.00 Pure hypercholesterolemia, unspecified; R50.9 Fever, unspecified
CPT/HCPCS: 36000; 36415; 36600; 71045; 80053; 81001; 82375; 82803; 83615; 83735; 83880; 84484; 85027; 85379; 85610; 87086; 93005; 93041; 93268; 94762; 96360; 96365; 96368; 99285; 99291; U0003; J0456; J0696; J1100; J1650; J2550; A9270-GY

== ENCOUNTER 2020-07-16 18:18 | Inpatient (IN) | payer MEDICARE, OTHER ==
--- NOTE | 2020-07-16 18:38 | ERPHSYRPT ---
- History of Present Illness Source: patient, family, EMS Exam Limitations: clinical condition (Patient is weak and has dementia) Timing/Duration: day(s) (A few days), worse Severity: moderate Associated Symptoms: weakness Hx Tetanus, Diphtheria Vaccination/Date Given: No Hx Influenza Vaccination/Date Given: Yes Hx Pneumococcal Vaccination/Date Given: No <PEPE VAUGHN - Last Filed: 07/16/20 18:55> <SCOTT ROSADO - Last Filed: 07/16/20 21:45> - History of Present Illness Time Seen by Provider: 07/16/20 18:35 Physician History: This is a 79-year-old white male who, on 07/07/2020, was diagnosed with a positive COVID-19 test. Patient was admitted into the Covid unit on that date. Patient has been home in his states that he is having lethargy and weakness. Patient is on narcotics chronically but she held that today because he noticed that his weakness and lethargy has been worsening. Patient has a history of dementia, hypertension and gastroesophageal reflux disease. She thinks his confusion is worsening. states that he is more confused over the last 24 hours.. He is unable to stand as he was before. In the last 24 hours he went from a room air oxygenation of 95% to room air oxygen to 89%. Still concerned that he may have thrush orally. (PEPE VAUGHN) Allergies/Adverse Reactions: No Known Drug Allergies Allergy (Verified 03/17/19 13:45) Home Medications: Amlodipine Besylate [Norvasc] 10 mg PO DAILY 10/26/18 [History] Calcium Carb, Citrate/Vit D3 [Calcium + D3 ER Tablet] 1 each PO DAILY 10/26/18 [History] Denosumab 60 mg [Prolia 60 mg Injection] 60 mg SQ UD 10/26/18 [History] Donepezil HCl 15 mg PO HS 10/26/18 [History] Duloxetine HCl [Cymbalta] 30 mg PO BID 10/26/18 [History] Famotidine 20 mg PO BID 10/26/18 [History] Melatonin 10 mg PO HS 10/26/18 [History] PANTOPRAZOLE 40 mg Tablet [Protonix 40MG Tablet] 40 mg PO HS 10/26/18 [History] metHOTREXate sodium [Trexall] 10 mg PO WEEKLY 10/26/18 [History] Memantine HCl [Memantine HCl ER] 28 mg PO DAILY 03/17/19 [History] Tamsulosin HCl 0.4 mg PO DAILY 03/17/19 [History] B Complex with Vitamin C [Surbex W-C] 1 each PO DAILY 07/07/20 [History] Ergocalciferol (Vitamin D2) [Vitamin D2] 1,250 mcg PO UD PRN 07/07/20 [History] Folic Acid 1 mg [Folate 1 mg] 1 mg PO DAILY 07/07/20 [History] Hydroxyzine Pamoate 25 mg PO DAILY 07/07/20 [History] Oxycodone HCl/Acetaminophen [Percocet 7.5-325 mg Tablet] 1 each PO Q8H PRN PRN 07/07/20 [History] Propranolol HCl 40 mg PO BID 07/07/20 [History] Sucralfate 1 gm [Carafate 1 GM] 1 g PO TID 07/07/20 [History] Turmeric/Turmeric Root Extract [Turmeric 450-50 mg Capsule] 1 each PO DAILY 07/07/20 [History] predniSONE [Prednisone] 2 mg PO DAILY 07/07/20 [History] Travel Risk - International Travel Have you traveled outside of the country in past 3 weeks: No - Coronavirus Screening Symptoms: Shortness of Breath Close contact with a COVID-19 positive Pt in past 14-21 Days: Yes <PEPE VAUGHN - Last Filed: 07/16/20 18:55> - Review of Systems Constitutional: Lethargy, Weakness Eyes: No Symptoms Ears, Nose, & Throat: No Symptoms Respiratory: Dyspnea Cardiac: No Symptoms Abdominal/Gastrointestinal: No Symptoms Genitourinary Symptoms: No Symptoms Musculoskeletal: No Symptoms Skin: No Symptoms Neurological: Lethargy Psychological: No Symptoms Endocrine: No Symptoms Hematologic/Lymphatic: No Symptoms Immunological/Allergic: No Symptoms All Other Systems: Reviewed and Negative <PEPE VAUGHN - Last Filed: 07/16/20 18:55> - Past Medical History Pertinent Past Medical History: Yes Neurological History: Migraines ENT History: Cataracts, Other Cardiac History: High Cholesterol, Hypertension Respiratory History: No Pertinent History Endocrine Medical History: No Pertinent History Musculoskeletal History: Arthritis GI Medical History: GERD, Ulcer History: No Pertinent History Psycho-Social History: No Pertinent History Male Reproductive Disorders: No Pertinent History Other Medical History: dementia - Past Surgical History Past Surgical History: Yes Neuro Surgical History: No Pertinent History Cardiac: No Pertinent History Respiratory: No Pertinent History Gastrointestinal: Appendectomy, Colon Resection Genitourinary: No Pertinent History Musculoskeletal: Joint Replacement, Orthopedic Surgery Male Surgical History: Vasectomy Other Surgical History: left knee replacement, colon and bladder were growing together hiatal henia repain, neck surgery with screws and plate (metal) - Social History Smoking Status: Former smoker Exposure to second hand smoke: No Drug Use: none Patient Lives Alone: No <PEPE VAUGHN - Last Filed: 07/16/20 18:55> - Physical Exam General Appearance: no apparent distress, lethargy, thin Eye Exam: PERRL/EOMI, eyes nml inspection Ears, Nose, Throat Exam: normal ENT inspection, dry mucous membranes Neck Exam: normal inspection, non-tender, supple, full range of motion Respiratory Exam: normal breath sounds, lungs clear, airway intact, No chest tenderness, No respiratory distress Cardiovascular Exam: regular rate/rhythm, normal heart sounds, normal peripheral pulses Gastrointestinal/Abdomen Exam: soft, normal bowel sounds, No tenderness Rectal Exam: not done Back Exam: normal inspection, normal range of motion, CVA tenderness Extremity Exam: normal inspection, normal range of motion, pelvis stable Neurologic Exam: confusion, other Skin Exam: normal color, warm, dry Lymphatic Exam: No adenopathy SpO2 Interpretation: borderline oxygenation SpO2: 94 O2 Delivery: Room Air <PEPE VAUGHN - Last Filed: 07/16/20 18:55> - Nursing Vital Signs Nursing Vital Signs: Initial Vital Signs Temperature 99.2 F 07/16/20 18:28 Pulse Rate 88 07/16/20 18:28 Respiratory Rate 11 L 07/16/20 18:28 Blood Pressure 140/74 07/16/20 18:28 O2 Sat by Pulse Oximetry 94 L 07/16/20 18:28 Pain Scale Pain Intensity 0 - Course Nursing assessment & vital signs reviewed: Yes EKG Interpreted by Me: RATE (84), Sinus Rhythm, NORMAL AXIS, NORMAL INTERVALS, NORMAL QRS, NORMAL ST-T, Other (There is no acute ischemic changes on today's EKG. When compared to EKG dated 07/07/2020 there is no significant change.) <PEPE VAUGHN - Last Filed: 07/16/20 18:55> - Radiology Exams Chest X-ray Interpretation: Teleradiologist Report (Interstitial alveolar opacities without consolidation or effusion. Remaining chest unchanged.) - CT Exams Head CT Interpretation: Tele-radiologist Report (2 06/05/2015, limited due to motion artifact. Otherwise grossly nonacute senile brain.) <SCOTT ROSADO - Last Filed: 07/16/20 21:45> Ordered Tests: Active Orders 24 hr Category Date Time Status Budget Counselor STAT Care 07/16/20 18:46 Active EKG-ER Only STAT Care 07/16/20 18:45 Active IV Insertion STAT Care 07/16/20 18:45 Active Isolation, Initiate & Maintain STAT Care 07/16/20 18:45 Active Pulse Oximetry (ED) STAT Care 07/16/20 18:45 Active CHEST 1 VIEW (PORTABLE) Stat Exams 07/16/20 18:46 Taken HEAD WITHOUT CONTRAST [CT] Stat Exams 07/16/20 18:54 Taken ABG [ARTERIAL BLOOD GASES] Stat Lab 07/16/20 19:41 Completed BLOOD CULTURE Stat Lab 07/16/20 19:20 Received CBC W DIFF Stat Lab 07/16/20 19:10 Completed CMP Stat Lab 07/16/20 19:10 Completed D-DIMER QUANTITATIVE Stat Lab 07/16/20 19:10 Completed INFLUENZA A+B BENJI Stat Lab 07/16/20 19:10 Completed Lactic Acid Stat Lab 07/16/20 19:41 Completed Manual Differential NC Stat Lab 07/16/20 19:10 Completed [place] Screen Stat Lab 07/16/20 19:10 Completed TROPONIN Q3H Lab 07/16/20 19:10 Completed TROPONIN Q3H Lab 07/16/20 22:00 Ordered TROPONIN Q3H Lab 07/17/20 01:00 Ordered TROPONIN Q3H Lab 07/17/20 04:00 Ordered TROPONIN Q3H Lab 07/17/20 07:00 Ordered UA W/RFX UR CULTURE Stat Lab 07/16/20 20:09 Completed Transfer Order Routine Transfer 07/16/20 Ordered Medication Summary Generic Name Dose Route Start Last Admin Trade Name Freq PRN Reason Stop Dose Admin Sodium Chloride 1,000 mls @ 50 mls/hr 07/16/20 18:45 07/16/20 20:21 Sodium Chloride 0.9% 1000 Ml IV 08/15/20 18:44 50 mls/hr .Q20H POPPY Administration Discontinued Medications Generic Name Dose Route Start Last Admin Trade Name Marry PRN Reason Stop Dose Admin Enoxaparin Sodium 53 mg 07/16/20 20:35 Enoxaparin Sodium SQ 07/16/20 20:36 STAT ONE Lab/Rad Data: Laboratory Result Diagrams 07/16/20 19:10 07/16/20 19:10 Laboratory Results 07/16/20 07/16/20 07/16/20 Range/Units 20:09 19:45 19:41 WBC (4.0-10.5) K/mm3 RBC (4.1-5.6) M/mm3 Hgb (12.5-18.0) gm/dl Hct (42-50) % MCV (78-100) fl MCH (26-32) pg MCHC (32-36) g/dl RDW (11.5-14.0) % Plt Count (150-450) K/mm3 MPV (7.5-11.0) fl Segmented Neutrophils (36.-66.) % Band Neutrophils (0.0-2.0) % Lymphocytes (Manual) (24-44) % Monocytes (Manual) (0.0-12.0) % Eosinophils (Manual) (0.00-3.0) % Atypical Lymphocytes % Platelet Estimate (NORMAL) RBC Morphology D-Dimer (215-500) ng/mL Puncture Site RIGHT BRACHIAL pCO2 28 L (35-45) mmHg pO2 115 H (75-100) mmHg Base Excess 3.1 H (-2.0-2.0) O2 Saturation 94.0 (94-100) g/dF ABG pH 7.55 H* (7.35-7.45) ABG HCO3 24.5 (22-28) ABG O2 Sat (Measured) 99.4 (95-100) % Garth Test NOT APPLICABLE A-a Gradient 0 a/A Ratio 1.00 Hemoglobin 13.0 Carboxyhemoglobin 4.3 (0.0-6.9) % THgb Methemoglobin 1.1 L (1.4-1.5) % Temperature 37.0 C POC O2 Flow Rate 21 % Sodium (137-145) mmol/L Potassium 3.5 (3.5-5.1) mmol/L Chloride (98-107) mmol/L Carbon Dioxide (22-30) mmol/L Anion Gap (5-15) MEQ/L BUN (9-20) mg/dL Creatinine (0.66-1.25) mg/dL Estimated GFR ML/MIN Glucose (74-106) mg/dL Lactic Acid (0.4-2.0) Calcium (8.4-10.2) mg/dL Total Bilirubin (0.2-1.3) mg/dL AST (17-59) U/L ALT (0-50) U/L Alkaline Phosphatase (38-126) U/L Ammonia < 9 L (9-30) umol/L Troponin I (0.000-0.034) ng/mL Serum Total Protein (6.3-8.2) g/dL Albumin (3.5-5.0) g/dL Urine Color YELLOW (YELLOW) Urine Appearance CLEAR (CLEAR) Urine pH 6.0 (5-6) Ur Specific Mccomb 1.013 (1.005-1.025) Urine Protein NEGATIVE (Negative) Urine Ketones SMALL (NEGATIVE) Urine Blood NEGATIVE (0-5) Abdullahi/ul Urine Nitrite NEGATIVE (NEGATIVE) Urine Bilirubin NEGATIVE (NEGATIVE) Urine Urobilinogen 2 (0-1) mg/dL Ur Leukocyte Esterase NEGATIVE (NEGATIVE) Urine WBC (Auto) 0-2 (0-5) /HPF Urine RBC (Auto) 0-2 (0-2) /HPF U Epithel Cells (Auto) NONE (FEW) /HPF Urine Bacteria (Auto) NONE SEEN (NEGATIVE) /HPF Urine Mucus (Auto) SLIGHT (NEGATIVE) /HPF Urine Culture Reflexed NO (NO) Urine Glucose NEGATIVE (NEGATIVE) mg/dL Monoscreen (Negative) Influenza Type A Ag (NEGATIVE) Influenza Type B Ag (NEGATIVE) 07/16/20 07/16/20 07/16/20 Range/Units 19:41 19:10 19:10 WBC (4.0-10.5) K/mm3 RBC (4.1-5.6) M/mm3 Hgb (12.5-18.0) gm/dl Hct (42-50) % MCV (78-100) fl MCH (26-32) pg MCHC (32-36) g/dl RDW (11.5-14.0) % Plt Count (150-450) K/mm3 MPV (7.5-11.0) fl Segmented Neutrophils (36.-66.) % Band Neutrophils (0.0-2.0) % Lymphocytes (Manual) (24-44) % Monocytes (Manual) (0.0-12.0) % Eosinophils (Manual) (0.00-3.0) % Atypical Lymphocytes % Platelet Estimate (NORMAL) RBC Morphology D-Dimer (215-500) ng/mL Puncture Site pCO2 (35-45) mmHg pO2 (75-100) mmHg Base Excess (-2.0-2.0) O2 Saturation (94-100) g/dF ABG pH (7.35-7.45) ABG HCO3 (22-28) ABG O2 Sat (Measured) (95-100) % Garth Test A-a Gradient a/A Ratio Hemoglobin Carboxyhemoglobin (0.0-6.9) % THgb Methemoglobin (1.4-1.5) % Temperature C POC O2 Flow Rate % Sodium (137-145) mmol/L Potassium (3.5-5.1) mmol/L Chloride (98-107) mmol/L Carbon Dioxide (22-30) mmol/L Anion Gap (5-15) MEQ/L BUN (9-20) mg/dL Creatinine (0.66-1.25) mg/dL Estimated GFR ML/MIN Glucose (74-106) mg/dL Lactic Acid 0.8 (0.4-2.0) Calcium (8.4-10.2) mg/dL Total Bilirubin (0.2-1.3) mg/dL AST (17-59) U/L ALT (0-50) U/L Alkaline Phosphatase (38-126) U/L Ammonia (9-30) umol/L Troponin I < 0.012 (0.000-0.034) ng/mL Serum Total Protein (6.3-8.2) g/dL Albumin (3.5-5.0) g/dL Urine Color (YELLOW) Urine Appearance (CLEAR) Urine pH (5-6) Ur Specific [place] (1.005-1.025) Urine Protein (Negative) Urine Ketones (NEGATIVE) Urine Blood (0-5) Abdullahi/ul Urine Nitrite (NEGATIVE) Urine Bilirubin (NEGATIVE) Urine Urobilinogen (0-1) mg/dL Ur Leukocyte Esterase (NEGATIVE) Urine WBC (Auto) (0-5) /HPF Urine RBC (Auto) (0-2) /HPF U Epithel Cells (Auto) (FEW) /HPF Urine Bacteria (Auto) (NEGATIVE) /HPF Urine Mucus (Auto) (NEGATIVE) /HPF Urine Culture Reflexed (NO) Urine Glucose (NEGATIVE) mg/dL Monoscreen NEGATIVE (Negative) Influenza Type A Ag (NEGATIVE) Influenza Type B Ag (NEGATIVE) 07/16/20 07/16/20 07/16/20 Range/Units 19:10 19:10 19:10 WBC 16.5 H (4.0-10.5) K/mm3 RBC 4.22 (4.1-5.6) M/mm3 Hgb 13.3 (12.5-18.0) gm/dl Hct 40.3 L (42-50) % MCV 95.5 (78-100) fl MCH 31.5 (26-32) pg MCHC 33.0 (32-36) g/dl RDW 16.8 H (11.5-14.0) % Plt Count 299 (150-450) K/mm3 MPV 12.0 H (7.5-11.0) fl Segmented Neutrophils 86 H (36.-66.) % Band Neutrophils 2 (0.0-2.0) % Lymphocytes (Manual) 2 L (24-44) % Monocytes (Manual) 7 (0.0-12.0) % Eosinophils (Manual) 2 (0.00-3.0) % Atypical Lymphocytes 1 % Platelet Estimate NORMAL (NORMAL) RBC Morphology NORMAL D-Dimer 1035 H* (215-500) ng/mL Puncture Site pCO2 (35-45) mmHg pO2 (75-100) mmHg Base Excess (-2.0-2.0) O2 Saturation (94-100) g/dF ABG pH (7.35-7.45) ABG HCO3 (22-28) ABG O2 Sat (Measured) (95-100) % Garth Test A-a Gradient a/A Ratio Hemoglobin Carboxyhemoglobin (0.0-6.9) % THgb Methemoglobin (1.4-1.5) % Temperature C POC O2 Flow Rate % Sodium 137 (137-145) mmol/L Potassium 3.8 (3.5-5.1) mmol/L Chloride 103 (98-107) mmol/L Carbon Dioxide 27 (22-30) mmol/L Anion Gap 10.2 (5-15) MEQ/L BUN 13 (9-20) mg/dL Creatinine 0.69 (0.66-1.25) mg/dL Estimated GFR > 60.0 ML/MIN Glucose 105 (74-106) mg/dL Lactic Acid (0.4-2.0) Calcium 8.3 L (8.4-10.2) mg/dL Total Bilirubin 0.70 (0.2-1.3) mg/dL AST 25 (17-59) U/L ALT 26 (0-50) U/L Alkaline Phosphatase 72 (38-126) U/L Ammonia (9-30) umol/L Troponin I (0.000-0.034) ng/mL Serum Total Protein 7.0 (6.3-8.2) g/dL Albumin 3.6 (3.5-5.0) g/dL Urine Color (YELLOW) Urine Appearance (CLEAR) Urine pH (5-6) Ur Specific [place] (1.005-1.025) Urine Protein (Negative) Urine Ketones (NEGATIVE) Urine Blood (0-5) Abdullahi/ul Urine Nitrite (NEGATIVE) Urine Bilirubin (NEGATIVE) Urine Urobilinogen (0-1) mg/dL Ur Leukocyte Esterase (NEGATIVE) Urine WBC (Auto) (0-5) /HPF Urine RBC (Auto) (0-2) /HPF U Epithel Cells (Auto) (FEW) /HPF Urine Bacteria (Auto) (NEGATIVE) /HPF Urine Mucus (Auto) (NEGATIVE) /HPF Urine Culture Reflexed (NO) Urine Glucose (NEGATIVE) mg/dL Monoscreen (Negative) Influenza Type A Ag (NEGATIVE) Influenza Type B Ag (NEGATIVE) 07/16/20 Range/Units 19:10 WBC (4.0-10.5) K/mm3 RBC (4.1-5.6) M/mm3 Hgb (12.5-18.0) gm/dl Hct (42-50) % MCV (78-100) fl MCH (26-32) pg MCHC (32-36) g/dl RDW (11.5-14.0) % Plt Count (150-450) K/mm3 MPV (7.5-11.0) fl Segmented Neutrophils (36.-66.) % Band Neutrophils (0.0-2.0) % Lymphocytes (Manual) (24-44) % Monocytes (Manual) (0.0-12.0) % Eosinophils (Manual) (0.00-3.0) % Atypical Lymphocytes % Platelet Estimate (NORMAL) RBC Morphology D-Dimer (215-500) ng/mL Puncture Site pCO2 (35-45) mmHg pO2 (75-100) mmHg Base Excess (-2.0-2.0) O2 Saturation (94-100) g/dF ABG pH (7.35-7.45) ABG HCO3 (22-28) ABG O2 Sat (Measured) (95-100) % Garth Test A-a Gradient a/A Ratio Hemoglobin Carboxyhemoglobin (0.0-6.9) % THgb Methemoglobin (1.4-1.5) % Temperature C POC O2 Flow Rate % Sodium (137-145) mmol/L Potassium (3.5-5.1) mmol/L Chloride (98-107) mmol/L Carbon Dioxide (22-30) mmol/L Anion Gap (5-15) MEQ/L BUN (9-20) mg/dL Creatinine (0.66-1.25) mg/dL Estimated GFR ML/MIN Glucose (74-106) mg/dL Lactic Acid (0.4-2.0) Calcium (8.4-10.2) mg/dL Total Bilirubin (0.2-1.3) mg/dL AST (17-59) U/L ALT (0-50) U/L Alkaline Phosphatase (38-126) U/L Ammonia (9-30) umol/L Troponin I (0.000-0.034) ng/mL Serum Total Protein (6.3-8.2) g/dL Albumin (3.5-5.0) g/dL Urine Color (YELLOW) Urine Appearance (CLEAR) Urine pH (5-6) Ur Specific [place] (1.005-1.025) Urine Protein (Negative) Urine Ketones (NEGATIVE) Urine Blood (0-5) Abdullahi/ul Urine Nitrite (NEGATIVE) Urine Bilirubin (NEGATIVE) Urine Urobilinogen (0-1) mg/dL Ur Leukocyte Esterase (NEGATIVE) Urine WBC (Auto) (0-5) /HPF Urine RBC (Auto) (0-2) /HPF U Epithel Cells (Auto) (FEW) /HPF Urine Bacteria (Auto) (NEGATIVE) /HPF Urine Mucus (Auto) (NEGATIVE) /HPF Urine Culture Reflexed (NO) Urine Glucose (NEGATIVE) mg/dL Monoscreen (Negative) Influenza Type A Ag NEGATIVE (NEGATIVE) Influenza Type B Ag NEGATIVE (NEGATIVE) <PEPE VAUGHN - Last Filed: 07/16/20 18:55> <SCOTT ROSADO - Last Filed: 07/16/20 21:45> - Progress Progress Note: 07/16/20 18:55 IM signing this patient out to Dr. Scott Rosado. I reviewed the patient history condition and pending lab and radiographic studies to be followed up on. He will make final disposition. (PEPE VAUGHN) Patient endorsed to Dr. Rosado at approximately [address] Rosado advised to follow- up on pending studies. Chest x-ray observed. Chronic changes observed. Formal report pending. CT head is negative for acute pathology. Senile brain observed. ABG shows a respiratory alkalosis. Patient has a leukocytosis of 16.5. D-dimer is 1035. Elevated D-dimer is expected in light of active Covid infection. Lactic acid 0.8. Influenza and mono were both negative. Troponin negative. reports the patient has been excessively weak. Patient also somewhat altered per . Will admit patient to the Covid unit for further evaluation and treatment. 07/16/20 20:29 (SCOTT ROSADO) - Departure Departure Disposition: In-patient Admission Critical Care Time: No <PEPE VAUGHN - Last Filed: 07/16/20 18:55> <SCOTT ROSADO - Last Filed: 07/16/20 21:45> - Departure Clinical Impression: Confusion Condition: Fair Referrals: KIRSTIE MONTIEL MD [Primary Care Provider] -
[2020-07-16] MEDS ORDERED: Sodium Chloride 0.9% 1000 ML 1,000 ML IV SCH (18:45)
[2020-07-16 19:35] LABS: Hematocrit 40.3 % (42-50); Hemoglobin 13.3 gm/dl (12.5-18.0); Mean Cell Volume 95.5 fl (78-100); Mean Corpuscular Hemoglobin 31.5 pg (26-32); Platelet Count 299 K/mm3 (150-450); Red Blood Count 4.22 M/mm3 (4.1-5.6); Red Cell Distribution Width 16.8 % (11.5-14.0); White Blood Count 16.5 K/mm3 (4.0-10.5)
[2020-07-16 19:47] LABS: A-aADO2 0; ABG POTASSIUM 3.5 (3.5-5.1); ABG SITE RIGHT BRACHIAL; ARTERIAL BLD GAS O2 SATURATION 99.4 % (95-100); ARTERIAL BLOOD GAS BASE EXCESS 3.1 (-2.0-2.0); ARTERIAL BLOOD GAS FIO2 21 %; ARTERIAL BLOOD GAS PCO2 28 mmHg (35-45); ARTERIAL BLOOD GAS PO2 115 mmHg (75-100); ARTERIAL BLOOD GAS pH 7.55 (7.35-7.45); CARBOXYHEMOGLOBIN 4.3 % THgb (0.0-6.9); HCO3- 24.5 (22-28); Methhemoglobin 1.1 % (1.4-1.5)
[2020-07-16 19:48] LABS: ALBUMIN 3.6 g/dL (3.5-5.0); ALKALINE PHOSPHATASE 72 U/L (38-126); ANION GAP 10.2 MEQ/L (5-15); BLOOD UREA NITROGEN 13 mg/dL (9-20); CHLORIDE 103 mmol/L (98-107); Calcium 8.3 mg/dL (8.4-10.2); Carbon Dioxide 27 mmol/L (22-30); Creatinine 1 0.69 mg/dL (0.66-1.25); EST GLOMERULAR FILTRATION RATE > 60.0 ML/MIN; Glucose 105 mg/dL (74-106); Potassium 3.8 mmol/L (3.5-5.1); SGOT/AST 25 U/L (17-59); SGPT/ALT 26 U/L (0-50); SODIUM 137 mmol/L (137-145)
[2020-07-16 20:05] LABS: INFLUENZA A NEGATIVE (NEGATIVE); INFLUENZA B NEGATIVE (NEGATIVE)
[2020-07-16] MEDS ORDERED: Sodium Chloride 0.9% 1000 ML 1,000 ML ONE (20:13)
[2020-07-16] MEDS ORDERED: ENOXAPARIN SODIUM SQ ONE ×2 (20:35→22:45)
[2020-07-16 21:00] LABS: Appearance CLEAR (CLEAR); Bilirubin NEGATIVE (NEGATIVE); Blood NEGATIVE Ery/ul (0-5); Glucose NEGATIVE (NEGATIVE); Ketones SMALL (NEGATIVE); Leukocyte Esterase NEGATIVE (NEGATIVE); Mucus SLIGHT /HPF (NEGATIVE); Nitrite NEGATIVE (NEGATIVE); Protein,Urine Dip NEGATIVE (Negative); RBC 0-2 /HPF (0-2); Specific Gravity 1.013 (1.005-1.025); Urobilinogen 2 mg/dL (0-1); WBC 0-2 /HPF (0-5)
[2020-07-16 21:11] LABS: ATYPICAL LYMPHS 1 %; BAND 2 % (0.0-2.0); Eosinophil 2 % (0.00-3.0); Lymphocytes 2 % (24-44); Monocyte 7 % (0.0-12.0); Neutrophils 86 % (36.-66.); Platelet Estimate NORMAL (NORMAL); Total Cells Counted 100
[2020-07-16 21:18] LABS: Bacteria NONE SEEN /HPF (NEGATIVE)
[2020-07-17 04:41] LABS: A-aADO2 36; ABG HEMOGLOBIN 12.6; ABG POTASSIUM 3.5 (3.5-5.1); ABG SITE RIGHT BRACHIAL; ARTERIAL BLD GAS O2 SATURATION 96.7 % (95-100); ARTERIAL BLOOD GAS BASE EXCESS 3.7 (-2.0-2.0); ARTERIAL BLOOD GAS FIO2 21 %; ARTERIAL BLOOD GAS PCO2 31 mmHg (35-45); ARTERIAL BLOOD GAS PO2 75 mmHg (75-100); ARTERIAL BLOOD GAS pH 7.53 (7.35-7.45); CARBOXYHEMOGLOBIN 1.3 % THgb (0.0-6.9); HCO3- 25.9 (22-28); HGB O2 SAT 94.6 g/dF (94-100); Methhemoglobin 0.9 % (1.4-1.5); paO2 pAO1 0.68
[2020-07-17 05:19] LABS: Hematocrit 41.2 % (42-50); Hemoglobin 13.4 gm/dl (12.5-18.0); Mean Cell Volume 95.6 fl (78-100); Mean Corpuscular Hemoglobin 31.1 pg (26-32); Mean Corpuscular Hgb Concent. 32.5 g/dl (32-36); Mean Platelet Volume 12.3 fl (7.5-11.0); Platelet Count 254 K/mm3 (150-450); Red Blood Count 4.31 M/mm3 (4.1-5.6); Red Cell Distribution Width 16.8 % (11.5-14.0); White Blood Count 12.2 K/mm3 (4.0-10.5)
[2020-07-17 05:36] LABS: ALBUMIN 3.3 g/dL (3.5-5.0); ALKALINE PHOSPHATASE 67 U/L (38-126); ANION GAP 9.4 MEQ/L (5-15); BLOOD UREA NITROGEN 9 mg/dL (9-20); CHLORIDE 103 mmol/L (98-107); Carbon Dioxide 28 mmol/L (22-30); EST GLOMERULAR FILTRATION RATE > 60.0 ML/MIN; Glucose 80 mg/dL (74-106); Potassium 3.5 mmol/L (3.5-5.1); SGOT/AST 34 U/L (17-59); SGPT/ALT 24 U/L (0-50); SODIUM 136 mmol/L (137-145); Total Protein 6.4 g/dL (6.3-8.2)
[2020-07-17 07:19] LABS: ANISOCYTOSIS 1+; Lymphocytes 11 % (24-44); Monocyte 6 % (0.0-12.0); Neutrophils 83 % (36.-66.); Platelet Estimate NORMAL (NORMAL); Poikilocytosis 1+; Schistocytes 1+; Total Cells Counted 100; Toxic Granulation 1+
[2020-07-17 07:20] LABS: Microcytosis 1+
--- NOTE | 2020-07-17 08:47 | XRAY ---
Indication: Short of breath and weakness. Comparison: July 07, 2020. Portable chest demonstrates developing left infrahilar interstitial alveolar opacity without consolidation/large effusion. Remaining heart and right lung unremarkable again with incidental mediastinal/hilar calcified granulomas and tortuous aorta.
--- NOTE | 2020-07-17 08:49 | XRAY ---
Indication: Confusion. History dementia. Recent positive Covid 19. Multiple contiguous axial images obtained through the head without contrast. Comparison: June 05, 2015. Several images through the midbrain are degraded by motion artifact. Grossly stable age-appropriate global atrophy with progressive worsening moderate periventricular degenerative micro-ischemia bilaterally and new right basal ganglia remote lacunar infarcts. No gross acute intracranial hemorrhage, abnormal extra-axial fluid collection, or mass effect. Fourth ventricle is midline. Bony calvarium grossly intact. Visualized paranasal sinuses and mastoid air cells are clear. Impression: Limited exam due to motion artifact. Atrophy, degenerative micro-ischemia, and remote right basal ganglia lacunar infarcts. No gross acute intracranial abnormalities.
[2020-07-17] MEDS: ENOXAPARIN SODIUM SQ SCH (11:51)
[2020-07-17] MEDS: ROCEPHIN 1 Gm-D5w 50 ml Bag** 1 G/50 ML IVPB IV SCH (12:08)
[2020-07-17] MEDS: Pepcid 20 MG PO SCH ×2 (12:26→20:24)
--- NOTE | 2020-07-17 13:47 | HP ---
CHIEF COMPLAINT: Unable to eat, unable to walk post-COVID. HISTORY OF PRESENT ILLNESS: The patient was treated for COVID here and sent home to the care of his . He has severe dementia. Apparently before getting COVID he was able to transfer and walk a little bit. He did talk to me when I worked in the unit here about a week ago. However, he is pretty well not talking at this point. His is unable to care for him. His COVID was approximately one week ago. He has no history of coughing at the present time. He did not answer any questions as to whether he is nauseated or having chest pain. REVIEW OF SYSTEMS: The patient cannot answer. HEENT: The patient seems to have no headache. CHEST: The patient is not frequently coughing. He coughs when he tries to drink. He seems to be aspirating. CVS: No history of heart attack. ABDOMEN: Apparently he is not eating. No nausea or vomiting. : The patient voids about every 10 minutes very small amounts of dark urine, according to . PHYSICAL EXAMINATION: The patient looks much worse than he did when he left. He is responsive to touch. I cannot understand anything he is saying. HEENT: Dry, cracked membranes. NECK: No JVD. CHEST: Few crackles. CVS: Regular rate. No murmurs or gallops. ABDOMEN: Scaphoid. No masses or organomegaly. EXTREMITIES: Very thin. There has been surgery to the left knee. LAB DATA AND TESTS: Blood gases with pCO2 115, pH 7.55, pO2 28. UA negative with specific gravity 1.013. Lactic acid normal at 0.8. Troponins low. White count 16.5. D-dimer 1035. Electrolytes completely normal. Creatinine 0.65. IMPRESSION: The patient apparently was able to stand the day before yesterday and was talking somewhat. He has had some decline in his overall situation which normally he is weak and confused but talkative. His white count is elevated. His D-dimer is elevated. I expect it is due to his recent COVID. The white count is something new. He is not hyperventilating, no respiratory distress. He also seems to have a spastic bladder. PLAN: At this time will be to treat him with IV fluids, rehydrate him. We put a catheter in so he can get some sleep and keep him dry. Treat him with some broad spectrum antibiotics. PROGNOSIS: Guarded.
[2020-07-17] MEDS: Sodium Chloride 0.9% 1000 ML 1,000 ML IV SCH (20:21)
[2020-07-17] MEDS: Nystatin SUSPENSION 60 ML PO SCH (20:23)
[2020-07-17] MEDS: TYLENOL 325 MG PO PRN (23:27)
[2020-07-18] MEDS: Nystatin SUSPENSION 60 ML PO SCH ×4 (03:29→20:00)
[2020-07-18 05:16] LABS: Hematocrit 39.9 % (42-50); Hemoglobin 13.2 gm/dl (12.5-18.0); Mean Cell Volume 94.3 fl (78-100); Mean Corpuscular Hemoglobin 31.2 pg (26-32); Mean Corpuscular Hgb Concent. 33.1 g/dl (32-36); Mean Platelet Volume 11.9 fl (7.5-11.0); Platelet Count 285 K/mm3 (150-450); Red Blood Count 4.23 M/mm3 (4.1-5.6); Red Cell Distribution Width 16.8 % (11.5-14.0); White Blood Count 12.1 K/mm3 (4.0-10.5)
[2020-07-18 08:08] LABS: ALBUMIN 3.4 g/dL (3.5-5.0); ALKALINE PHOSPHATASE 72 U/L (38-126); ANION GAP 12.6 MEQ/L (5-15); BLOOD UREA NITROGEN 12 mg/dL (9-20); CHLORIDE 108 mmol/L (98-107); Calcium 8.2 mg/dL (8.4-10.2); Carbon Dioxide 22 mmol/L (22-30); Creatinine 1 0.63 mg/dL (0.66-1.25); EST GLOMERULAR FILTRATION RATE > 60.0 ML/MIN; Glucose 101 mg/dL (74-106); Potassium 3.7 mmol/L (3.5-5.1); SGOT/AST 32 U/L (17-59); SGPT/ALT 25 U/L (0-50); SODIUM 139 mmol/L (137-145); Total Protein 6.5 g/dL (6.3-8.2)
[2020-07-18] MEDS: ROCEPHIN 1 Gm-D5w 50 ml Bag** 1 G/50 ML IVPB IV SCH (09:00)
[2020-07-18] MEDS: Pepcid 20 MG PO SCH ×2 (09:01→22:16)
[2020-07-18] MEDS: ENOXAPARIN SODIUM SQ SCH (09:01)
[2020-07-18] MEDS ORDERED: ENOXAPARIN SODIUM SQ SCH (10:00)
[2020-07-18] MEDS ORDERED: ROCEPHIN 1 Gm-D5w 50 ml Bag** 1 G/50 ML IVPB IV SCH (12:00)
[2020-07-18] MEDS: TYLENOL 325 MG PO PRN (12:56)
[2020-07-19] MEDS: Nystatin SUSPENSION 60 ML PO SCH ×4 (03:38→21:31)
[2020-07-19] MEDS: TYLENOL 325 MG PO PRN (03:58)
[2020-07-19 05:35] LABS: Hematocrit 38.5 % (42-50); Hemoglobin 12.9 gm/dl (12.5-18.0); Mean Cell Volume 93.7 fl (78-100); Mean Corpuscular Hemoglobin 31.4 pg (26-32); Mean Corpuscular Hgb Concent. 33.5 g/dl (32-36); Mean Platelet Volume 12.6 fl (7.5-11.0); Platelet Count 254 K/mm3 (150-450); Red Blood Count 4.11 M/mm3 (4.1-5.6); Red Cell Distribution Width 16.7 % (11.5-14.0)
[2020-07-19] MEDS: Sodium Chloride 0.9% 1000 ML 1,000 ML IV SCH (05:53)
[2020-07-19 06:03] LABS: ALBUMIN 3.3 g/dL (3.5-5.0); ALKALINE PHOSPHATASE 76 U/L (38-126); ANION GAP 11.9 MEQ/L (5-15); BLOOD UREA NITROGEN 9 mg/dL (9-20); CHLORIDE 109 mmol/L (98-107); Calcium 8.1 mg/dL (8.4-10.2); Carbon Dioxide 22 mmol/L (22-30); Creatinine 1 0.62 mg/dL (0.66-1.25); EST GLOMERULAR FILTRATION RATE > 60.0 ML/MIN; Glucose 117 mg/dL (74-106); SGOT/AST 34 U/L (17-59); SGPT/ALT 24 U/L (0-50); SODIUM 140 mmol/L (137-145); Total Protein 6.6 g/dL (6.3-8.2)
--- NOTE | 2020-07-19 09:32 | PROG NOTE ---
CHIEF COMPLAINT: COVID pneumonia, severe weakness, unresponsiveness. HISTORY: Today, the patient has tremendously improved since his admission. He told me where he lived and who his physician was. He said the food was not any good. He was talkative actually. He was coughing and short of breath at rest with oxygen on. He was running a low grade temperature of 99 to 100F. He is on some Rocephin for possible secondary pneumonia. He has a Garzon catheter in. His urine is clear. We discontinued a huge amount of medicines most of them not extremely helpful. Dementia medicines are not really proven to be helpful. Vitamins are really not helpful. He is on some Atarax and things like that which are sedating. I do not know why he was on methotrexate. I am not too enthused about using that at the present time. He complains of no pain. I kept him on some Pepcid for possible reflux and acid. His blood work today shows his glucose is 117, creatinine 0.6. Electrolytes except for potassium were normal. Potassium was 3. D-dimer is down to 662. White count 12,000, hemoglobin 12.9. IMPRESSION: The patient has: 1) COVID pneumonia. 2) COVID myopathy. 3) Alzheimer's with increased dementia. 4) Hypokalemia. Although these parameters have improved somewhat, will continue with present medications which have been decreased. I will add some oral potassium. Will continue his Percocet if needed but he does not seem to be in any pain at the present time. He is a candidate for prison after he is afebrile and without symptoms I suppose. PROGNOSIS: Improved.
[2020-07-19] MEDS ORDERED: NON-FORMULARY ITEM (Oxycodone Hcl/Acetaminophen [Percocet 7.5-325 Mg Tablet] 1 EACH) PO PRN (10:14)
[2020-07-19] MEDS: ROCEPHIN 1 Gm-D5w 50 ml Bag** 1 G/50 ML IVPB IV SCH (10:31)
[2020-07-19] MEDS: ENOXAPARIN SODIUM SQ SCH (10:31)
[2020-07-19] MEDS: Pepcid 20 MG PO SCH ×2 (10:31→21:32)
[2020-07-19] MEDS: Klor Con 10 MEQ PO SCH (10:36)
[2020-07-19] MEDS: Flomax 0.4 MG PO SCH (10:37)
[2020-07-19] MEDS: PERCOCET TABLET 5/325MG PO PRN ×2 (12:39→21:31)
[2020-07-20] MEDS: Nystatin SUSPENSION 60 ML PO SCH ×4 (02:23→20:17)
[2020-07-20 08:08] LABS: ALKALINE PHOSPHATASE 66 U/L (38-126); ANION GAP 8.9 MEQ/L (5-15); BLOOD UREA NITROGEN 8 mg/dL (9-20); CHLORIDE 111 mmol/L (98-107); Calcium 7.7 mg/dL (8.4-10.2); Carbon Dioxide 24 mmol/L (22-30); EST GLOMERULAR FILTRATION RATE > 60.0 ML/MIN; Glucose 98 mg/dL (74-106); Potassium 3.5 mmol/L (3.5-5.1); SGOT/AST 28 U/L (17-59); SGPT/ALT 19 U/L (0-50); SODIUM 141 mmol/L (137-145); Total Protein 6.2 g/dL (6.3-8.2)
[2020-07-20] MEDS: ROCEPHIN 1 Gm-D5w 50 ml Bag** 1 G/50 ML IVPB IV SCH (10:22)
[2020-07-20] MEDS: Pepcid 20 MG PO SCH ×2 (10:23→21:27)
[2020-07-20] MEDS: Flomax 0.4 MG PO SCH (10:23)
[2020-07-20] MEDS: Klor Con 10 MEQ PO SCH (10:23)
[2020-07-20] MEDS: ENOXAPARIN SODIUM SQ SCH (10:24)
[2020-07-20 12:02] LABS: Mean Cell Volume 95.9 fl (78-100); Mean Corpuscular Hemoglobin 31.1 pg (26-32); Mean Corpuscular Hgb Concent. 32.4 g/dl (32-36); Mean Platelet Volume 12.7 fl (7.5-11.0); Platelet Count 295 K/mm3 (150-450); Red Blood Count 3.86 M/mm3 (4.1-5.6); White Blood Count 10.2 K/mm3 (4.0-10.5)
[2020-07-20] MEDS: Cymbalta 30 MG Capsule PO SCH ×2 (12:52→21:28)
[2020-07-20] MEDS ORDERED: Tussionex Pennkinetic Susp ONE (20:51)
[2020-07-21] MEDS: NORCO 5/325 MG PO PRN ×2 (00:55→22:42)
[2020-07-21] MEDS: Nystatin SUSPENSION 60 ML PO SCH ×4 (00:57→20:16)
[2020-07-21 06:58] LABS: ALBUMIN 2.9 g/dL (3.5-5.0); ALKALINE PHOSPHATASE 60 U/L (38-126); ANION GAP 8.1 MEQ/L (5-15); BLOOD UREA NITROGEN 8 mg/dL (9-20); CHLORIDE 110 mmol/L (98-107); Calcium 8.1 mg/dL (8.4-10.2); Carbon Dioxide 26 mmol/L (22-30); Creatinine 1 0.59 mg/dL (0.66-1.25); EST GLOMERULAR FILTRATION RATE > 60.0 ML/MIN; Glucose 99 mg/dL (74-106); Potassium 3.4 mmol/L (3.5-5.1); SGOT/AST 33 U/L (17-59); SGPT/ALT 17 U/L (0-50); SODIUM 141 mmol/L (137-145)
[2020-07-21] MEDS: ROCEPHIN 1 Gm-D5w 50 ml Bag** 1 G/50 ML IVPB IV SCH (08:41)
[2020-07-21] MEDS: Flomax 0.4 MG PO SCH (08:43)
[2020-07-21] MEDS: ENOXAPARIN SODIUM SQ SCH (08:43)
[2020-07-21] MEDS: Cymbalta 30 MG Capsule PO SCH ×2 (08:43→22:42)
[2020-07-21] MEDS: Klor Con 10 MEQ PO SCH (08:44)
[2020-07-21] MEDS: Pepcid 20 MG PO SCH ×2 (08:44→22:42)
[2020-07-22] MEDS: Nystatin SUSPENSION 60 ML PO SCH ×2 (02:50→07:51)
[2020-07-22] MEDS: ENOXAPARIN SODIUM SQ SCH (10:17)
[2020-07-22] MEDS: Cymbalta 30 MG Capsule PO SCH (10:17)
[2020-07-22] MEDS: Flomax 0.4 MG PO SCH (10:18)
[2020-07-22] MEDS: Pepcid 20 MG PO SCH (10:18)
[2020-07-22] MEDS: Klor Con 10 MEQ PO SCH (10:18)
[2020-07-22 10:42] VITALS: PULSE 113
--- NOTE | 2020-07-22 13:33 | PROG NOTE ---
DATE: 07/20/2020 HISTORY: This morning Cole Howard had a good conversation with me. He explained that he was in the hospital and seems to understand that. He told me his home is in [place] again. He said he is having some pain in his joints. I believe his original home medications included some pain medication which has not been restarted. If that is true will restart him on the Percocet he is on. He was also on methotrexate which I did not start him on. I am not for sure why he takes that. He denies having rheumatoid arthritis. He is on Cymbalta which might help his pain. Really we are stopping a lot of his medications. He has become more alert, orientated and pleasant. He is not able to ambulate due to weakness. Chest is clear. Heart sounds normal. He is afebrile. Labs are stable. I notice his temperature is mildly elevated at 99F. Cut back the oxycodone for pain or maybe something a little weaker, hydrocodone, as he does not seem be in severe pain. I do not want to get him delirious. PLAN: At this time we will continue with Remdesivir and Decadron. PROGNOSIS: Fair. Placement would be in a residential probably on Wednesday.
[2020-07-22 13:57] VITALS: BP 122/80; O2SAT 96
--- NOTE | 2020-07-22 14:42 | PROG NOTE ---
DATE: 07/21/2020 HISTORY: Cole Howard is talking. He is confused at times. He said there is a fungus coming up again like there is a palpable thing on his skin. I cannot see anything. He said it has been there for years and he rubs cream on it. He said his neck hurts and he uses mushrooms for that. I really do not think he is talking about psychotropic mushrooms. He was an contract accountant, retired. He seems to be breathing pretty well. He is talking occasionally. His chest has few crackles. He is well hydrated and he is eating a little bit. He still has a catheter in which will probably keep in. Monitor his liquids and keep him dry. He is afebrile. O2 saturation on room air is 95%. He is on Lovenox. He was started on Rocephin with elevated white count although that has come down. He had this secondary from aspiration. Chest x-ray on 07/07/2020 he had an infiltrate. Overall he is doing much better. I think he could go home tomorrow. [facility] is [facility] a [facility], I believe. Chest is clear. Heart sounds regular. IMPRESSION: 1) Dehydration. 2) COVID pneumonia. 3) Elevated D-dimer in the past.
--- NOTE | 2020-07-24 14:11 | DS ---
ADMISSION DIAGNOSES: 1) Lethargy. 2) Not eating. 3) Unable to walk post-COVID. 4) Dementia. 5) Hypertension. 6) Rheumatoid arthritis. 7) Chronic pain. DISCHARGE DIAGNOSES: 1) COVID. 2) Dehydration. 3) Weakness from COVID. 4) Dementia. 5) History of rheumatoid arthritis. 6) Depression. 7) Dementia. 8) Hypertension. HOSPITAL COURSE: The patient readmitted from his last stay after being home for a few days. He and his said that he could no longer walk and not eating. He became even more confused. He was dehydrated from not eating. He is not coughing very much. He was diagnosed with COVID probably about ten days ago. He has rather severe dementia. On the second day however he was able to hold a meaningful conversation although it was not always right. He is breathing well. He is urinating again. The urine in his Garzon bag looked pretty clear. His creatinine was 0.65. Blood gases on admission with pCO2 of 115, pO2 of 28 and this was a venous gas as his O2 by his oximeter much higher than that. He was continued to be treated with IV fluids. He started eating. He continued to talk well, sleep some. He was never very agitated. His chest x-ray showed chronic changes. CT was negative for any acute pathology. White count was elevated and that came down to normal. His troponins were negative. He will be discharged back home on basically the medicines he is on now. Actually he is being transferred to [facility]. He will be on less medications. He should be followed up by the house doctor to see if he needs to resume some of the older ones. His blood pressures remained normal without any blood pressure medicine. His dementia is unchanged. He was off Aricept. His medicines do not seem to make much difference in Alzheimer's. We discontinued prednisone because his breathing was back to normal and it will raise his sugar, perhaps give him steroid dementia. Overall he is improved.
== END 2020-07-22 14:55 | DRG 177 ==
LOC: ED 18:18 → MED SURG 23:27 → INTOOBSV 23:27 → OBSVTOIN 07-17 13:19
PROVIDERS: ADMIT Family Medicine; ATTEND Family Medicine
DX: U07.1 COVID-19 (principal); J12.82 Pneumonia due to coronavirus disease 2019; R53.1 Weakness; I10 Essential (primary) hypertension; Z79.899 Other long term (current) drug therapy; E78.00 Pure hypercholesterolemia, unspecified; G72.9 Myopathy, unspecified; G30.9 Alzheimer's disease, unspecified; F02.80 Dementia in other diseases classified elsewhere, unspecified severity, without behavioral disturbance, psychotic disturbance, mood disturbance, and anxiety; E87.6 Hypokalemia; E86.0 Dehydration; R79.1 Abnormal coagulation profile
CPT/HCPCS: 36415; 36600; 70450; 71045; 80053; 81001; 82140; 82375; 82803; 83605; 84484; 85025; 85027; 85379; 86308; 87040; 87400; 93005; 93041; 93268; 94760; 94762; 96360; 96361; 96372; 99285; G0378; J0696; J1650; A9270-GY